=== PATIENT | female | born 1980 | race Caucasian/White ===

== ENCOUNTER 2017-09-11 09:50 | Inpatient (IN) | payer OTHER ==
[2017-09-11 10:34] VITALS: BMI 30.1
--- NOTE | 2017-09-11 12:11 | HP ---
CIWA Score - CIWA Score Nausea/Vomitin Muscle Tremors: 3 Anxiety: 2 Agitation: 2 Paroxysmal Sweats: 2 Orientation: 0-Oriented Tacttile Disturbances: 2-Mild Itch/Numbness/Burn Auditory Disturbances: 2-Mild Harshness/Frighten Visual Disturbances: 1-Very Mild Sensitivity Headache: 2-Mild CIWA-Ar Total Score: 19 Admission ROS BHS - HPI Chief Complaint: I need help to stop drinking alcohol Allergies/Adverse Reactions: Allergies Allergy/AdvReac Type Severity Reaction Status Date / Time No Known Allergies Allergy Verified 09/11/17 12:16 History of Present Illness: this 36 years old female with alcohol dependence,seeking detox,withdrawal symptom,never been in detox before, seen in [facility] 1 week ago syncope alcohol related obesity s/p lap gastric by pass on10/29/12 nicotine dependence anxiety,insomnia need help to stop drinking Exam Limitations: No Limitations - Ebola screening Have you traveled outside of the country in the last 21 days: No Have you had contact with anyone from an Ebola affected area: No Have you been sick,other than usual withdrawal symptoms: No Do you have a fever: No - Review of Systems Constitutional: Loss of Appetite, Malaise, Night Sweats, Changes in sleep, Weakness EENT: reports: Nose Congestion Respiratory: reports: No Symptoms reported Cardiac: reports: Palpitations GI: reports: Diarrhea, Nausea, Vomiting, Abdominal cramping : reports: No Symptoms Reported Musculoskeletal: reports: Back Pain, Muscle Pain Integumentary: reports: Dryness Neuro: reports: Headache, Tremors Endocrine: reports: No Symptoms Reported Hematology: reports: No Symptoms Reported Psychiatric: reports: No Sypmtoms Reported, Judgement Intact, Mood/Affect Appropiate, Orientated x3 (insomnia), Anxious Patient History - Patient Medical History Hx Anemia: No Hx Asthma: No Hx Chronic Obstructive Pulmonary Disease (COPD): No Hx Cancer: No Hx Cardiac Disorders: No Hx Congestive Heart Failure: No Hx Hypertension: No Hx Hypercholesterolemia: No Hx Pacemaker: No HX Cerebrovascular Accident: No Hx Seizures: No Hx Dementia: No Hx Diabetes: No Hx Gastrointestinal Disorders: No Hx Liver Disease: No Hx Genitourinary Disorders: No Hx Sexually Transmitted Disorders: No Hx Renal Disease (ESRD): No Hx Thyroid Disease: No Hx Human Immunodeficiency Virus (HIV): No (last 09/04/17 negative) Hx Hepatitis C: No Hx Depression: No Hx Suicide Attempt: No Hx Bipolar Disorder: No Hx Schizophrenia: No Other Medical History: no suicidal,no homicidal,s/p lap gastric by pass surgey on 10/29/12 - Patient Surgical History Past Surgical History: Yes Hx Abdominal Surgery: Yes (s/p lap gasric by pass in 10/29/12) - PPD History Previous Implant?: Yes Documented Results: Negative w/o proof Implanted On Prior [facility] Admission?: No PPD to be Administered?: Yes - Reproductive History Patient is a Female of Child Bearing Age (11 -55 yrs old): Yes Last Menstrual Period: 08/09/17 Patient : No - Smoking Cessation Smoking history: Current every day smoker Aproximately how many cigarettes per day: 4 Hx Chewing Tobacco Use: No Initiated information on smoking cessation: Yes 'Breaking Loose' booklet given: 09/11/17 - Substance & Tx. History Hx Alcohol Use: Yes Hx Substance Use: No Substance Use Type: Alcohol Hx Substance Use Treatment: No - Substances Abused Alcohol Route: Oral Frequency: Daily Amount used: 3 BOTTLES WINE Age of first use: 34 Date of Last Use: 09/11/17 Family Disease History - Family Disease History Family Disease History: Other: Father (alcohol,) Admission Physical Exam BHS - Vital Signs Vital Signs: Vital Signs - 24 hr 09/11/17 10:32 Temperature 97.1 F L Pulse Rate 101 H Respiratory 20 Rate Blood Pressure 142/97 - Physical General Appearance: Yes: Moderate Distress, Tremorous, Irritable, Sweating, Anxious HEENTM: Yes: Normal ENT Inspection, GERALDO, Pharynx Normal Respiratory: Yes: Lungs Clear, Normal Breath Sounds, No Respiratory Distress Neck: Yes: Within Normal Limits, Supple, Trachea in good position Breast: Yes: Breast Exam Deferred Cardiology: Yes: Tachycardia Abdominal: Yes: Within Normal Limits, Normal Bowel Sounds, Non Tender, Flat, Soft Genitourinary: Yes: Within Normal Limits Back: Yes: Muscle Spasm Musculoskeletal: Yes: full range of Motion, Back pain, Muscle Pain Extremities: Yes: Within Normal Limits, Normal Range of Motion, Tremors Neurological: Yes: set up mechanic heading machines II-XII NML intact, Fully Oriented, Alert, Motor Strength 5/5 Integumentary: Yes: Dry Lymphatic: Yes: Within Normal Limits - Diagnostic (1) Alcohol dependence with uncomplicated withdrawal Current Visit: Yes Status: Acute (2) Alcohol dependence with uncomplicated intoxication Current Visit: Yes Status: Acute (3) Nicotine dependence Current Visit: Yes Status: Acute (4) Insomnia secondary to depression with anxiety Current Visit: Yes Status: Acute (5) Status post bariatric surgery Current Visit: Yes Status: Acute Cleared for Admission BHS - Detox or Rehab [facility] Level of Care: Medically Managed Detox Regimen/Protocol: Librium S Breath Alcohol Content Breath Alcohol Content: 0.216 Urine Pregancy Test - Result Urine Test Results: Negative- NO Line Present Urine Drug Screen - Results Drug Screen Negative: No Urine Drug Screen Results: BZO-Benzodiazepines
[2017-09-11] MEDS ORDERED: MAG HYDROX/AL HYDROX/SIMETH 30 ML UNIT-DOSE CUP PO PRN (12:43)
[2017-09-11] MEDS ORDERED: ACETAMINOPHEN 325 MG TABLET (FP) PO PRN (12:43)
[2017-09-11] MEDS ORDERED: IBUPROFEN 400 MG TABLET (FP) PO PRN (12:43)
[2017-09-11] MEDS ORDERED: guaiFENesin/D-METHORPHAN HB 10 ML UNIT-DOSE CUPS PO PRN (12:43)
[2017-09-11] MEDS ORDERED: P-EPHED 60MG/TRIPROLIDI 2.5MG TABLET PO PRN (12:43)
[2017-09-11] MEDS ORDERED: MENTHOL/PHENOL 1 EACH UD MM PRN (12:43)
[2017-09-11] MEDS ORDERED: LOPERAMIDE HCL 2 MG CAPSULE PO PRN (12:43)
[2017-09-11] MEDS ORDERED: MAGNESIUM CITRATE 300 ML BOTTLE PO PRN (12:43)
[2017-09-11] MEDS ORDERED: MAGNESIUM HYDROX 2400MG/30ML ORAL SUSPENSION 30 ML CUP PO PRN (12:43)
[2017-09-11] MEDS ORDERED: chlordiazePOXIDE HCL 25 MG CAPSULE PO ONE (13:15)
--- NOTE | 2017-09-11 13:43 | CONSULT ---
[facility] Psychiatric Consult - Data Date of interview: 09/11/17 Admission source: [facility] Identifying data: This is 36 years old female, single mothe rof three, apartment groundskeeper working, living with family, on PA, with no psychiatric hospitalization history, with alcohol dependence,seeking detoxification, reports alcohol withdrawal symptoms. Substance Abuse History: Smoking history: Current every day smoker. Aproximately how many cigarettes per day: 4. Hx Chewing Tobacco Use: No. Initiated information on smoking cessation: Yes. 'Breaking Loose' booklet given : 09/11/17. - Substance & Tx. History. Hx Alcohol Use: Yes. Hx Substance Use : No. Substance Use Type: Alcohol. Hx Substance Use Treatment: No. - Substances Abused. Alcohol. Route: Oral. Frequency: Daily. Amount used: 3 BOTTLES WINE. Age of first use: 34. Date of Last Use: 09/11/17 Medical History: Syncope history, Obesity, s/p gastric bypass/Bariatric surgery, Psychiatric History: Denies past psychiatric history\Denies suicidal, homicidal history as well Physical/Sexual Abuse/Trauma History: Denies Additional Comment: Observation. Detox Unit Care Protocol Mental Status Exam - Mental Status Exam Alert and Oriented to: Person Cognitive Function: Fair Patient Appearance: Well Groomed Mood: Apprehensive Affect: Mood Congruent Patient Behavior: Cooperative Speech Pattern: Appropriate Voice Loudness: Normal Thought Process: Goal Oriented Thought Disorder: Being Controlled Hallucinations: Denies Suicidal Ideation: Denies Homicidal Ideation: Denies Insight/Judgement: Fair Sleep: Difficulty falling asleep Appetite: Weight gain Muscle strength/Tone: Normal Gait/Station: Normal Additional Comments: Observation. Detox Unit Care Protocol Psychiatric Findings - Problem List ([place] 1, 2,3) (1) Drug-induced mood disorder Current Visit: Yes Status: Suspected (2) Alcohol dependence with uncomplicated intoxication Current Visit: Yes Status: Acute (3) Alcohol dependence with uncomplicated withdrawal Current Visit: Yes Status: Acute (4) Nicotine dependence Current Visit: Yes Status: Acute - Initial Treatment Plan Initial Treatment Plan: Observation. Detox Unit Care Protocol
[2017-09-11] MEDS: NICOTINE 14 MG/24 HOURS TOPICAL PATCH TD SCH (13:52)
--- NOTE | 2017-09-11 14:51 | EKG ---
Test Reason : Blood Pressure : / mmHG Vent. Rate : 090 BPM Atrial Rate : 090 BPM P-R Int : 158 ms QRS Dur : 080 ms QT Int : 374 ms P-R-T Axes : 045 048 029 degrees QTc Int : 457 ms NORMAL SINUS RHYTHM NORMAL ECG NO PREVIOUS ECGS AVAILABLE Confirmed by GELY FERRARI MD ([id number]) on 09/11/2017 2:50:39 PM Referred By: Confirmed By:GELY FERRARI MD
[2017-09-11] MEDS: chlordiazePOXIDE HCL 25 MG CAPSULE PO SCH ×2 (16:58→22:33)
[2017-09-11 18:07] LABS: URINE APPEARANCE SLCLOUDY; URINE BILIRUBIN NEGATIVE (<2.0 mg/dL); URINE BLOOD 2+ (NEGATIVE); URINE COLOR YELLOW; URINE GLUCOSE (UA) NEGATIVE (NEGATIVE); URINE KETONE NEGATIVE (NEGATIVE); URINE LEUK ESTERASE TRACE (NEGATIVE); URINE NITRITE POSITIVE (NEGATIVE); URINE PROTEIN NEGATIVE (NEGATIVE); URINE UROBILINOGEN NEGATIVE mg/dL (0.2-1.0)
[2017-09-11 18:16] LABS: EPI CELLS RARE /HPF (FEW); URINE BACTERIA RARE /hpf (NONE SEEN)
[2017-09-11] MEDS: chlordiazePOXIDE HCL 25 MG CAPSULE PO PRN (19:01)
[2017-09-11] MEDS ORDERED: MELATONIN 5 MG TABLETS PO PRN (22:00)
[2017-09-11] MEDS: THIAMINE HCL 100 MG TABLET (FP) PO SCH (22:32)
[2017-09-11] MEDS: hydrOXYzine PAMOATE 50 MG CAPSULE (FP) PO PRN (22:34)
[2017-09-12] MEDS: chlordiazePOXIDE HCL 25 MG CAPSULE PO SCH ×4 (05:38→22:23)
--- NOTE | 2017-09-12 10:04 | PN ---
S CIWA - CIWA Score Nausea/Vomitin Muscle Tremors: 3 Anxiety: 3 Agitation: 1-Slight > Activity Paroxysmal Sweats: 1-Minimal Palms Moist Orientation: 0-Oriented Tacttile Disturbances: 1-Very Mild Itch/Numbness Auditory Disturbances: 0-None Visual Disturbances: 0-None Headache: 0-None Present CIWA-Ar Total Score: 12 BHS Progress Note (SOAP) Subjective: nause,k asweats, interruped sleep, anxiety, trmeors, back pain requesting flxeril Objective: 09/12/17 10:03 Vital Signs - 24 hr 09/11/17 09/11/17 09/11/17 10:32 14:28 16:00 Temperature 97.1 F L 98.7 F Pulse Rate 101 H 94 H 98 H Respiratory 20 18 Rate Blood Pressure 142/97 142/88 09/11/17 09/11/17 09/11/17 17:00 17:30 18:00 Temperature 98.2 F Pulse Rate 115 H 120 H 118 H Respiratory 18 18 18 Rate Blood Pressure 150/86 09/11/17 09/11/17 09/11/17 19:00 19:30 20:00 Temperature Pulse Rate 109 H 111 H 100 H Respiratory 18 18 18 Rate Blood Pressure 09/11/17 09/11/17 09/11/17 20:30 21:00 21:30 Temperature Pulse Rate 100 H 102 H 100 H Respiratory 16 16 16 Rate Blood Pressure 09/11/17 09/11/17 09/11/17 22:00 22:30 23:00 Temperature 98.1 F Pulse Rate 112 H 110 H 112 H Respiratory 16 16 16 Rate Blood Pressure 136/94 09/12/17 09/12/17 09/12/17 00:30 01:00 01:30 Temperature Pulse Rate 100 H 98 H 102 H Respiratory 18 18 18 Rate Blood Pressure 09/12/17 09/12/17 09/12/17 02:00 02:30 03:30 Temperature Pulse Rate 104 H 100 H Respiratory 18 18 18 Rate Blood Pressure 09/12/17 09/12/17 09/12/17 04:00 04:30 05:00 Temperature Pulse Rate 92 H 94 H 69 Respiratory 16 16 16 Rate Blood Pressure 09/12/17 09/12/17 09/12/17 05:30 06:00 06:30 Temperature Pulse Rate 98 H 68 70 Respiratory 16 16 16 Rate Blood Pressure 09/12/17 09/12/17 09/12/17 07:00 07:28 07:30 Temperature 98 F Pulse Rate 70 69 72 Respiratory 16 16 16 Rate Blood Pressure 108/58 Laboratory Tests 09/11/17 15:00 Urine Color Yellow Urine Appearance Slcloudy Urine pH 6.0 Ur Specific [place] 1.005 Urine Protein Negative Urine Glucose (UA) Negative Urine Ketones Negative Urine Blood 2+ H Urine Nitrite Positive Urine Bilirubin Negative Urine Urobilinogen Negative Ur Leukocyte Esterase Trace Urine WBC (Auto) 4 Urine RBC (Auto) 3 Ur Epithelial Cells Rare Urine Bacteria Rare labs pending Assessment: 09/12/17 10:03 withdrawal sx - cont detox, bakc pain flexeril ordered as per patitn request
[2017-09-12] MEDS: PRENATAL VITAMINS W/ FOLIC ACID TABLET (FP) PO SCH (10:35)
[2017-09-12] MEDS: NICOTINE 14 MG/24 HOURS TOPICAL PATCH TD SCH (10:35)
[2017-09-12 10:48] LABS: HEMATOCRIT 40.1 % (32.4-45.2); HEMOGLOBIN 13.5 GM/dL (10.7-15.3); MCH 32.3 pg (25.7-33.7); MCHC 33.7 g/dl (32.0-36.0); MEAN PLT VOLUME 8.5 fl (7.5-11.1); PLATELET COUNT 214 K/MM3 (134-434); RBC 4.18 M/mm3 (3.60-5.2); RDW 14.1 % (11.6-15.6)
[2017-09-12 10:53] LABS: ALBUMIN 3.9 g/dl (3.4-5.0); ANION GAP 6 (8-16); BLOOD UREA NITROGEN 6 mg/dL (7-18); CALCIUM 8.5 mg/dL (8.5-10.1); CHLORIDE 102 mmol/L (98-107); CO2 32 mmol/L (21-32); GLUCOSE,RANDOM 100 mg/dL (74-106); POTASSIUM 3.3 mmol/L (3.5-5.1); SODIUM 140 mmol/L (136-145)
[2017-09-12 10:59] LABS: ALK PHOS 75 U/L (45-117); BILIRUBIN,TOTAL < 0.1 mg/dL (0.2-1.0); CREATININE 0.5 mg/dL (0.55-1.02); SGOT/AST 75 U/L (15-37); SGPT/ALT 80 U/L (12-78); TOT PROT 7.6 g/dl (6.4-8.2)
[2017-09-12 11:11] LABS: SICKLE CELL SCREEN NEGATIVE (NEGATIVE)
[2017-09-12] MEDS: chlordiazePOXIDE HCL 25 MG CAPSULE PO PRN (14:10)
[2017-09-12] MEDS: CYCLOBENZAPRINE HCL 10 MG TABLET (FP) PO SCH ×2 (14:13→22:23)
[2017-09-12] MEDS: ZOLPIDEM TARTRATE 10 MG TABLET (PARK CARE ONLY) PO PRN (22:23)
[2017-09-12] MEDS: THIAMINE HCL 100 MG TABLET (FP) PO SCH (22:23)
[2017-09-13] MEDS: CYCLOBENZAPRINE HCL 10 MG TABLET (FP) PO SCH ×3 (05:37→22:43)
[2017-09-13] MEDS: chlordiazePOXIDE HCL 25 MG CAPSULE PO SCH ×2 (05:37→10:59)
[2017-09-13] MEDS ORDERED: POTASSIUM CHLORIDE TABS 20 MEQ TABLET.ER (FP) PO ONE (07:04)
--- NOTE | 2017-09-13 07:06 | PN ---
S Progress Note Note: kdur 40 meq po x 1 for K+ 3.3 repeat bmp 09/14/2017
[2017-09-13] MEDS: NICOTINE 14 MG/24 HOURS TOPICAL PATCH TD SCH (10:59)
[2017-09-13] MEDS: PRENATAL VITAMINS W/ FOLIC ACID TABLET (FP) PO SCH (10:59)
[2017-09-13] MEDS: chlordiazePOXIDE 5 MG CAPSULE PO SCH ×2 (17:31→22:43)
--- NOTE | 2017-09-13 20:44 | PN ---
S CIWA - CIWA Score Nausea/Vomitin Muscle Tremors: 3 Anxiety: 3 Agitation: 2 Paroxysmal Sweats: 2 Orientation: 0-Oriented Tacttile Disturbances: 0-None Auditory Disturbances: 0-None Visual Disturbances: 0-None Headache: 0-None Present CIWA-Ar Total Score: 13 BHS Progress Note (SOAP) Subjective: sweats shakes sleep disturbance Objective: A & o x 3 ambulates steadily Last Vital Signs Temp Pulse Resp BP Pulse Ox 97.2 F L 86 18 115/61 09/13/17 17:55 09/13/17 17:55 09/13/17 17:55 09/13/17 17:55 Assessment: 09/13/17 20:44 withdrawal sx Plan: continue detox
[2017-09-13] MEDS: THIAMINE HCL 100 MG TABLET (FP) PO SCH (22:43)
[2017-09-13] MEDS: ZOLPIDEM TARTRATE 10 MG TABLET (PARK CARE ONLY) PO PRN (22:43)
[2017-09-14] MEDS: chlordiazePOXIDE 5 MG CAPSULE PO SCH ×2 (05:44→10:31)
[2017-09-14] MEDS: CYCLOBENZAPRINE HCL 10 MG TABLET (FP) PO SCH ×3 (05:44→22:26)
[2017-09-14 10:11] LABS: ANION GAP 6 (8-16); BLOOD UREA NITROGEN 8 mg/dL (7-18); CALCIUM 8.3 mg/dL (8.5-10.1); CHLORIDE 105 mmol/L (98-107); CO2 28 mmol/L (21-32); CREATININE 0.5 mg/dL (0.55-1.02); GLUCOSE,RANDOM 87 mg/dL (74-106); POTASSIUM 4.1 mmol/L (3.5-5.1); SODIUM 139 mmol/L (136-145)
[2017-09-14] MEDS: NICOTINE 14 MG/24 HOURS TOPICAL PATCH TD SCH (10:31)
[2017-09-14] MEDS: PRENATAL VITAMINS W/ FOLIC ACID TABLET (FP) PO SCH (10:31)
[2017-09-14] MEDS: hydrOXYzine PAMOATE 50 MG CAPSULE (FP) PO PRN (13:21)
--- NOTE | 2017-09-14 14:49 | PN ---
BHS Progress Note (SOAP) Subjective: feeling better less sweat no tremor tolerated food and fluid well Objective: 09/14/17 14:48 Vital Signs Temperature 100.0 F H 09/14/17 14:10 Pulse Rate 95 H 09/14/17 14:10 Respiratory Rate 20 09/14/17 14:10 Blood Pressure 113/72 09/14/17 14:10 O2 Sat by Pulse Oximetry (%) Laboratory Last Values WBC 5.0 K/mm3 (4.0-10.0) 09/12/17 05:50 RBC 4.18 M/mm3 (3.60-5.2) 09/12/17 05:50 Hgb 13.5 GM/dL (10.7-15.3) 09/12/17 05:50 Hct 40.1 % (32.4-45.2) 09/12/17 05:50 MCV 96.0 fl (80-96) 09/12/17 05:50 MCH 32.3 pg (25.7-33.7) 09/12/17 05:50 MCHC 33.7 g/dl (32.0-36.0) 09/12/17 05:50 RDW 14.1 % (11.6-15.6) 09/12/17 05:50 Plt Count 214 K/MM3 (134-434) 09/12/17 05:50 MPV 8.5 fl (7.5-11.1) 09/12/17 05:50 Sickle Cell Screen Negative (NEGATIVE) 09/12/17 05:50 Sodium 139 mmol/L (136-145) 09/14/17 06:00 Potassium 4.1 mmol/L (3.5-5.1) 09/14/17 06:00 Chloride 105 mmol/L (98-107) 09/14/17 06:00 Carbon Dioxide 28 mmol/L (21-32) 09/14/17 06:00 Anion Gap 6 (8-16) L 09/14/17 06:00 BUN 8 mg/dL (7-18) 09/14/17 06:00 Creatinine 0.5 mg/dL (0.55-1.02) L 09/14/17 06:00 Creat Clearance w eGFR > 60 (>60) 09/12/17 05:50 Random Glucose 87 mg/dL (74-106) 09/14/17 06:00 Calcium 8.3 mg/dL (8.5-10.1) L 09/14/17 06:00 Total Bilirubin < 0.1 mg/dL (0.2-1.0) L 09/12/17 05:50 AST 75 U/L (15-37) H 09/12/17 05:50 ALT 80 U/L (12-78) H 09/12/17 05:50 Alkaline Phosphatase 75 U/L (45-117) 09/12/17 05:50 Total Protein 7.6 g/dl (6.4-8.2) 09/12/17 05:50 Albumin 3.9 g/dl (3.4-5.0) 09/12/17 05:50 Urine Color Yellow 09/11/17 15:00 Urine Appearance Slcloudy 09/11/17 15:00 Urine pH 6.0 (5.0-8.0) 09/11/17 15:00 Ur Specific [place] 1.005 (1.001-1.035) 09/11/17 15:00 Urine Protein Negative (NEGATIVE) 09/11/17 15:00 Urine Glucose (UA) Negative (NEGATIVE) 09/11/17 15:00 Urine Ketones Negative (NEGATIVE) 09/11/17 15:00 Urine Blood 2+ (NEGATIVE) H 09/11/17 15:00 Urine Nitrite Positive (NEGATIVE) 09/11/17 15:00 Urine Bilirubin Negative (<2.0 mg/dL) 09/11/17 15:00 Urine Urobilinogen Negative mg/dL (0.2-1.0) 09/11/17 15:00 Ur Leukocyte Esterase Trace (NEGATIVE) 09/11/17 15:00 Urine WBC (Auto) 4 /hpf (3-5) 09/11/17 15:00 Urine RBC (Auto) 3 /hpf (0-3) 09/11/17 15:00 Ur Epithelial Cells Rare /HPF (FEW) 09/11/17 15:00 Urine Bacteria Rare /hpf (NONE SEEN) 09/11/17 15:00 RPR Titer Nonreactive (NONREACTIVE) 09/12/17 05:50 lab noted Assessment: 09/14/17 14:49 mild withdrawal sx Plan: medically supervised detox
[2017-09-14] MEDS: chlordiazePOXIDE HCL 10 MG CAPSULE PO SCH ×2 (17:04→22:27)
[2017-09-14] MEDS: THIAMINE HCL 100 MG TABLET (FP) PO SCH (22:26)
[2017-09-14] MEDS: ZOLPIDEM TARTRATE 10 MG TABLET (PARK CARE ONLY) PO PRN (22:26)
[2017-09-15] MEDS: chlordiazePOXIDE HCL 10 MG CAPSULE PO SCH (06:00)
[2017-09-15] MEDS: CYCLOBENZAPRINE HCL 10 MG TABLET (FP) PO SCH (06:13)
[2017-09-15 08:05] VITALS: BP 90/60; PULSE 69; TEMP 97.3
[2017-09-15] MEDS: NICOTINE 14 MG/24 HOURS TOPICAL PATCH TD SCH (09:04)
[2017-09-15] MEDS: PRENATAL VITAMINS W/ FOLIC ACID TABLET (FP) PO SCH (09:04)
--- NOTE | 2017-09-15 09:30 | DS ---
[facility] Detox Discharge Summary Admission Date: 09/11/17 Discharge Date: 09/15/17 - History Present History: Alcohol Dependence Additional Comments: 36 years old female admitted on 09/11/17 for alcohol withdrawal sx completed alcohol detox regimen tolerated well denies alcohol withdrawal sx alert oriented x 3 no acute distress follow up with medical primary care provider as well as addiction menagement - Physical Exam Results Vital Signs: Vital Signs Temperature 97.3 F L 09/15/17 05:00 Pulse Rate 69 09/15/17 05:00 Respiratory Rate 18 09/15/17 05:00 Blood Pressure 90/60 09/15/17 05:00 O2 Sat by Pulse Oximetry (%) Pertinent Admission Physical Exam Findings: withdrawal sx Vital Signs Temperature 97.3 F L 09/15/17 05:00 Pulse Rate 69 09/15/17 05:00 Respiratory Rate 18 09/15/17 05:00 Blood Pressure 90/60 09/15/17 05:00 O2 Sat by Pulse Oximetry (%) Laboratory Last Values WBC 5.0 K/mm3 (4.0-10.0) 09/12/17 05:50 RBC 4.18 M/mm3 (3.60-5.2) 09/12/17 05:50 Hgb 13.5 GM/dL (10.7-15.3) 09/12/17 05:50 Hct 40.1 % (32.4-45.2) 09/12/17 05:50 MCV 96.0 fl (80-96) 09/12/17 05:50 MCH 32.3 pg (25.7-33.7) 09/12/17 05:50 MCHC 33.7 g/dl (32.0-36.0) 09/12/17 05:50 RDW 14.1 % (11.6-15.6) 09/12/17 05:50 Plt Count 214 K/MM3 (134-434) 09/12/17 05:50 MPV 8.5 fl (7.5-11.1) 09/12/17 05:50 Sickle Cell Screen Negative (NEGATIVE) 09/12/17 05:50 Sodium 139 mmol/L (136-145) 09/14/17 06:00 Potassium 4.1 mmol/L (3.5-5.1) 09/14/17 06:00 Chloride 105 mmol/L (98-107) 09/14/17 06:00 Carbon Dioxide 28 mmol/L (21-32) 09/14/17 06:00 Anion Gap 6 (8-16) L 09/14/17 06:00 BUN 8 mg/dL (7-18) 09/14/17 06:00 Creatinine 0.5 mg/dL (0.55-1.02) L 09/14/17 06:00 Creat Clearance w eGFR > 60 (>60) 09/12/17 05:50 Random Glucose 87 mg/dL (74-106) 09/14/17 06:00 Calcium 8.3 mg/dL (8.5-10.1) L 09/14/17 06:00 Total Bilirubin < 0.1 mg/dL (0.2-1.0) L 09/12/17 05:50 AST 75 U/L (15-37) H 09/12/17 05:50 ALT 80 U/L (12-78) H 09/12/17 05:50 Alkaline Phosphatase 75 U/L (45-117) 09/12/17 05:50 Total Protein 7.6 g/dl (6.4-8.2) 09/12/17 05:50 Albumin 3.9 g/dl (3.4-5.0) 09/12/17 05:50 Urine Color Yellow 09/11/17 15:00 Urine Appearance Slcloudy 09/11/17 15:00 Urine pH 6.0 (5.0-8.0) 09/11/17 15:00 Ur Specific [place] 1.005 (1.001-1.035) 09/11/17 15:00 Urine Protein Negative (NEGATIVE) 09/11/17 15:00 Urine Glucose (UA) Negative (NEGATIVE) 09/11/17 15:00 Urine Ketones Negative (NEGATIVE) 09/11/17 15:00 Urine Blood 2+ (NEGATIVE) H 09/11/17 15:00 Urine Nitrite Positive (NEGATIVE) 09/11/17 15:00 Urine Bilirubin Negative (<2.0 mg/dL) 09/11/17 15:00 Urine Urobilinogen Negative mg/dL (0.2-1.0) 09/11/17 15:00 Ur Leukocyte Esterase Trace (NEGATIVE) 09/11/17 15:00 Urine WBC (Auto) 4 /hpf (3-5) 09/11/17 15:00 Urine RBC (Auto) 3 /hpf (0-3) 09/11/17 15:00 Ur Epithelial Cells Rare /HPF (FEW) 09/11/17 15:00 Urine Bacteria Rare /hpf (NONE SEEN) 09/11/17 15:00 RPR Titer Nonreactive (NONREACTIVE) 09/12/17 05:50 lab noted - Treatment Hospital Course: Detox Protocol Followed, Detoxed Safely, Responded well, Discharged Condition Good, Rehab Referral Accepted Patient has Accepted a Rehab Referral to: Dr Briscoe - Medication Discharge Medications: Ambulatory Orders NK [No Known Home Medication] 09/11/17 - Diagnosis (1) Alcohol dependence with uncomplicated intoxication Status: Acute (2) Nicotine dependence Status: Acute Qualifiers: Nicotine product type: cigarettes Substance use status: in withdrawal Qualified Code(s): F17.213 - Nicotine dependence, cigarettes, with withdrawal (3) Status post bariatric surgery Status: Suspected - AMA Did Patient Leave Against Medical Advice: No
== END 2017-09-15 09:05 | disposition home or self-care (01) | DRG 775 ==
LOC: YASAS 09:50 → EDSEX 09:50 → Y6N 12:42
PROVIDERS: ADMIT Internal Medicine; ATTEND Internal Medicine
PROC: HZ2ZZZZ Detoxification Services for Substance Abuse Treatment (ICD-10-PCS; principal; 2017-09-11)
DX: F10.230 Alcohol dependence with withdrawal, uncomplicated (principal); F17.213 Nicotine dependence, cigarettes, with withdrawal; F19.24 Other psychoactive substance dependence with psychoactive substance-induced mood disorder; F51.05 Insomnia due to other mental disorder; M54.5 Low back pain; Z98.84 Bariatric surgery status
CPT/HCPCS: 36415; 80048; 80053; 81003; 81015; 85027; 85660; 86593; 93005; 93010

== ENCOUNTER 2017-10-13 01:12 | Inpatient (IN) | payer OTHER ==
--- NOTE | 2017-10-13 01:40 | HP ---
CIWA Score - CIWA Score Nausea/Vomitin-No Nausea/No Vomiting Muscle Tremors: 3 Anxiety: 3 Agitation: 1-Slight > Activity Paroxysmal Sweats: 3 Orientation: 1-Uncertain about Date Tacttile Disturbances: 0-None Auditory Disturbances: 0-None Visual Disturbances: 0-None Headache: 4-Moderately Severe CIWA-Ar Total Score: 15 Admission ROS S - HPI Chief Complaint: Alcohol withdrawal symptoms Allergies/Adverse Reactions: Allergies Allergy/AdvReac Type Severity Reaction Status Date / Time No Known Allergies Allergy Verified 09/11/17 12:16 History of Present Illness: 36 years old female with 3 years old history of alcohol dependence is seeking admission to detox. Patient has been in previous detox at [facility] and reports insignificant period of sobriety. She has medical history of depression, Hypertension and anxiety. Patient denies suicide attempt and suicidal ideation at this time. Exam Limitations: No Limitations - Ebola screening Have you traveled outside of the country in the last 21 days: No Have you had contact with anyone from an Ebola affected area: No Have you been sick,other than usual withdrawal symptoms: No Do you have a fever: No - Review of Systems Constitutional: Chills, Loss of Appetite, Malaise, Night Sweats, Changes in sleep EENT: reports: No Symptoms Reported Respiratory: reports: No Symptoms reported Cardiac: reports: No Symptoms Reported, Chest Tightness GI: reports: No Symptoms Reported, Poor Appetite, Poor Fluid Intake, Vomiting : reports: No Symptoms Reported Musculoskeletal: reports: Back Pain, Muscle Pain Integumentary: reports: Dryness Neuro: reports: No Symptoms reported Endocrine: reports: No Symptoms Reported Hematology: reports: No Symptoms Reported Psychiatric: reports: Anxious, Depressed Other Systems: Reviewed and Negative Patient History - Patient Medical History Hx Anemia: No Hx Asthma: No Hx Chronic Obstructive Pulmonary Disease (COPD): No Hx Cancer: No Hx Cardiac Disorders: No Hx Congestive Heart Failure: No Hx Hypertension: Yes (Not on medication) Hx Hypercholesterolemia: No Hx Pacemaker: No HX Cerebrovascular Accident: No Hx Seizures: No Hx Dementia: No Hx Diabetes: No Hx Gastrointestinal Disorders: No Hx Liver Disease: No Hx Genitourinary Disorders: No Hx Sexually Transmitted Disorders: No Hx Renal Disease (ESRD): No Hx Thyroid Disease: No Hx Human Immunodeficiency Virus (HIV): No (Negative 09/04/17 ) Hx Hepatitis C: No Hx Depression: Yes (Not on medication) Hx Suicide Attempt: No Hx Bipolar Disorder: No Hx Schizophrenia: No Other Medical History: Anxiety - Patient Surgical History Past Surgical History: Yes Hx Neurologic Surgery: No Hx Cataract Extraction: No Hx Cardiac Surgery: No Hx Lung Surgery: No Hx Abdominal Surgery: Yes (s/p lap gasric by pass in 10/29/12) Hx Appendectomy: No Hx Cholecystectomy: No Hx Genitourinary Surgery: No Hx Section: No Hx Orthopedic Surgery: No Hx Hysterectomy: No Anesthesia Reaction: No - PPD History Date: 09/13/17 PPD to be Administered?: No - Reproductive History Patient is a Female of Child Bearing Age (11 -55 yrs old): Yes Last Menstrual Period: 08/09/17 LMP comment: Tubligation December 04, 2007 Patient : No - Smoking Cessation Smoking history: Current every day smoker Have you smoked in the past 12 months: Yes Aproximately how many cigarettes per day: 10 Hx Chewing Tobacco Use: No Initiated information on smoking cessation: Yes 'Breaking Loose' booklet given: 10/13/17 - Substance & Tx. History Hx Alcohol Use: Yes Hx Substance Use: No Hx Substance Use Treatment: Yes ([facility]) - Substances Abused Alcohol Route: Oral Frequency: Daily Amount used: VODKA - 1 Liter Age of first use: 34 Date of Last Use: 10/12/17 Family Disease History - Family Disease History Family Disease History: Heart Disease: Father (alcohol, depressiondeceased), Other: Father, Mother (Hyperthyroidism), Brother (Bipolar, Schizophrenia) Admission Physical Exam [facility] - Physical General Appearance: Yes: Moderate Distress, Tremorous, Irritable, Sweating, Anxious HEENTM: Yes: EOMI, Normal ENT Inspection, Normocephalic, Normal Voice Respiratory: Yes: Lungs Clear, Normal Breath Sounds, No Respiratory Distress Neck: Yes: Supple Breast: Yes: Breast Exam Deferred Cardiology: Yes: Tachycardia Abdominal: Yes: Normal Bowel Sounds, Flat Genitourinary: Yes: Within Normal Limits Back: Yes: Normal Inspection Musculoskeletal: Yes: Back pain, Muscle Pain, Muscle weakness Extremities: Yes: Tremors Neurological: Yes: Normal Mood/Affect Integumentary: Yes: Normal Color Lymphatic: Yes: Within Normal Limits - Diagnostic (1) Alcohol dependence with uncomplicated withdrawal Current Visit: Yes Status: Chronic (2) HTN (hypertension) Current Visit: Yes Status: Chronic (3) Depression Current Visit: Yes Status: Chronic (4) Anxiety Current Visit: Yes Status: Chronic (5) Nicotine dependence Current Visit: No Status: Chronic Qualifiers: Nicotine product type: cigarettes Substance use status: in withdrawal Qualified Code(s): F17.213 - Nicotine dependence, cigarettes, with withdrawal Cleared for Admission S - Detox or Rehab [facility] Level of Care: Medically Managed Detox Regimen/Protocol: Librium BHS Breath Alcohol Content Breath Alcohol Content: 0.002 Vital Signs - Vital Signs Vital Signs Refused: No Temperature: 98.4 F Temperature Source: Oral Pulse Rate: 104 Respiratory Rate: 20 Blood Pressure: 159/99 BP Location: Left Arm Blood Pressure Position: Sitting - Height Height: 5 ft 3 in - Weight Weight: 174 lb Weight Measurement Method: Standing Scale Body Mass Index (BMI): 30.8 - Bowel Function Bowel Movement: No Urine Pregancy Test - Test Device Lot Number: [id number] Expiration Date: 04/24/19 - Result Urine Test Results: Negative- NO Line Present Urine Drug Screen - Test Device Lot Number: [id number] Expiration Date: 06/25/19 - Control Is Test Valid: Yes - Results Drug Screen Negative: No Urine Drug Screen Results: BZO-Benzodiazepines
[2017-10-13 01:45] VITALS: BMI 30.8
[2017-10-13] MEDS ORDERED: guaiFENesin/D-METHORPHAN HB 10 ML UNIT-DOSE CUPS PO PRN (02:03)
[2017-10-13] MEDS ORDERED: MAGNESIUM CITRATE 300 ML BOTTLE PO PRN (02:03)
[2017-10-13] MEDS ORDERED: MAGNESIUM HYDROX 2400MG/30ML ORAL SUSPENSION 30 ML CUP PO PRN (02:03)
[2017-10-13] MEDS ORDERED: LOPERAMIDE HCL 2 MG CAPSULE PO PRN (02:03)
[2017-10-13] MEDS ORDERED: P-EPHED 60MG/TRIPROLIDI 2.5MG TABLET PO PRN (02:03)
[2017-10-13] MEDS ORDERED: MENTHOL/PHENOL 1 EACH UD MM PRN (02:03)
[2017-10-13] MEDS ORDERED: MAG HYDROX/AL HYDROX/SIMETH 30 ML UNIT-DOSE CUP PO PRN (02:03)
[2017-10-13] MEDS ORDERED: ACETAMINOPHEN 325 MG TABLET (FP) PO PRN (02:03)
[2017-10-13] MEDS ORDERED: IBUPROFEN 400 MG TABLET (FP) PO PRN (02:03)
[2017-10-13] MEDS ORDERED: cloNIDine HCL 0.1 MG TABLET PO ONE (03:03)
[2017-10-13] MEDS: chlordiazePOXIDE HCL 25 MG CAPSULE PO PRN ×2 (03:25→08:50)
[2017-10-13] MEDS: chlordiazePOXIDE HCL 25 MG CAPSULE PO SCH ×4 (05:53→22:36)
--- NOTE | 2017-10-13 09:00 | CONSULT ---
[facility] Psychiatric Consult - Data Date of interview: 10/13/17 Admission source: [facility] Identifying data: This is 36 years old female, single mother of three, living with youngest child, recently lost her job, currently on PA, with psychiatric hospitalization history, with 3 years old history of alcohol dependence is seeking admission to detox reporting withdrawal symptoms. Substance Abuse History: Smoking history: Current every day smoker. Have you smoked in the past 12 months: Yes. Aproximately how many cigarettes per day: 10. Hx Chewing Tobacco Use: No. Initiated information on smoking cessation: Yes. 'Breaking Loose' booklet given: 10/13/17. - Substance & Tx. History. Hx Alcohol Use: Yes. Hx Substance Use: No. Hx Substance Use Treatment: Yes ([facility]) . - Substances Abused. Alcohol. Route: Oral. Frequency: Daily. Amount used: VODKA - 1 Liter. Age of first use: 34. Date of Last Use: 10/12/17 Medical History: HTN, s/p Bariartric surgery Psychiatric History: Patient reports depression and anxiety, reports psychiatric admission but does npt remeber where and when, denies suicidal and homicidal history, reports no medications taking prior mto admission, asking medications for anxiety. Physical/Sexual Abuse/Trauma History: Denies Additional Comment: Observation. Detox Unit Care Protocol. Vistaril 50mg pop prn q4 for anxiety Mental Status Exam - Mental Status Exam Alert and Oriented to: Place, Person Cognitive Function: Fair Patient Appearance: Well Groomed Mood: Sad Affect: Flat Patient Behavior: Cooperative Speech Pattern: Delayed Voice Loudness: Mildly Soft/Quiet Thought Process: Circumstantial Thought Disorder: Being Controlled Hallucinations: Denies Suicidal Ideation: Denies Homicidal Ideation: Denies Insight/Judgement: Fair Sleep: Difficulty falling asleep Appetite: Weight gain Muscle strength/Tone: Mild Hypertonicity Gait/Station: Normal Additional Comments: Observation. Detox Unit Care Protocol. Vistaril 50mg pop prn q4 for anxiety Psychiatric Findings - Problem List ([place] 1, 2,3) (1) Alcohol dependence with uncomplicated withdrawal Current Visit: Yes Status: Chronic (2) Anxiety Current Visit: Yes Status: Chronic (3) Depression Current Visit: Yes Status: Chronic (4) Alcohol dependence with uncomplicated intoxication Current Visit: No Status: Acute (5) Nicotine dependence Current Visit: No Status: Chronic Qualifiers: Nicotine product type: cigarettes Substance use status: in withdrawal Qualified Code(s): F17.213 - Nicotine dependence, cigarettes, with withdrawal (6) Drug-induced mood disorder Current Visit: No Status: Suspected - Initial Treatment Plan Initial Treatment Plan: Observation. Detox Unit Care Protocol. Vistaril 50mg pop prn q4 for anxiety
[2017-10-13] MEDS: PRENATAL VITAMINS W/ FOLIC ACID TABLET (FP) PO SCH (10:58)
[2017-10-13 11:03] LABS: URINE APPEARANCE CLEAR; URINE BILIRUBIN NEGATIVE (<2.0 mg/dL); URINE GLUCOSE (UA) NEGATIVE (NEGATIVE); URINE KETONE NEGATIVE (NEGATIVE); URINE LEUK ESTERASE NEGATIVE (NEGATIVE); URINE NITRITE NEGATIVE (NEGATIVE)
[2017-10-13 11:07] LABS: URINE PROTEIN 1+ (NEGATIVE)
[2017-10-13 11:09] LABS: URINE COLOR YELLOW
[2017-10-13 11:19] LABS: EPI CELLS FEW /HPF (FEW); URINE MUCUS MODERATE
--- NOTE | 2017-10-13 12:01 | PN ---
S CIWA - CIWA Score Nausea/Vomitin-Mild Nausea/No Vomiting Muscle Tremors: 4-Moderate,w/Arms Extend Anxiety: 4-Mod. Anxious/Guarded Agitation: 4-Moderately Restless Paroxysmal Sweats: 1-Minimal Palms Moist Orientation: 0-Oriented Tacttile Disturbances: 0-None Auditory Disturbances: 0-None Visual Disturbances: 0-None Headache: 0-None Present CIWA-Ar Total Score: 14 BHS Progress Note (SOAP) Subjective: sweat tremor gi distress trouble sleep at night Objective: 10/13/17 12:02 Vital Signs Temperature 97.5 F L 10/13/17 09:47 Pulse Rate 76 10/13/17 09:47 Respiratory Rate 20 10/13/17 09:47 Blood Pressure 105/70 10/13/17 09:47 O2 Sat by Pulse Oximetry (%) Laboratory Last Values Urine Color Yellow 10/13/17 07:30 Urine Appearance Clear 10/13/17 07:30 Urine pH 5.0 (5.0-8.0) 10/13/17 07:30 Ur Specific [place] 1.017 (1.001-1.035) 10/13/17 07:30 Urine Protein 1+ (NEGATIVE) H 10/13/17 07:30 Urine Glucose (UA) Negative (NEGATIVE) 10/13/17 07:30 Urine Ketones Negative (NEGATIVE) 10/13/17 07:30 Urine Blood 2+ (NEGATIVE) H 10/13/17 07:30 Urine Nitrite Negative (NEGATIVE) 10/13/17 07:30 Urine Bilirubin Negative (<2.0 mg/dL) 10/13/17 07:30 Urine Urobilinogen 2.0 mg/dL (0.2-1.0) H 10/13/17 07:30 Ur Leukocyte Esterase Negative (NEGATIVE) 10/13/17 07:30 Urine WBC (Auto) None /hpf (3-5) 10/13/17 07:30 Urine RBC (Auto) 46 /hpf (0-3) 10/13/17 07:30 Ur Epithelial Cells Few /HPF (FEW) 10/13/17 07:30 Urine Mucus Moderate 10/13/17 07:30 lab noted Assessment: 10/13/17 12:02 withdrawal sx Plan: continue detox
[2017-10-13] MEDS: hydrOXYzine PAMOATE 50 MG CAPSULE (FP) PO PRN (15:21)
[2017-10-13] MEDS: MELATONIN 5 MG TABLETS PO PRN (22:36)
[2017-10-13] MEDS: THIAMINE HCL 100 MG TABLET (FP) PO SCH (22:36)
--- NOTE | 2017-10-13 23:42 | EKG ---
Test Reason : Blood Pressure : / mmHG Vent. Rate : 076 BPM Atrial Rate : 076 BPM P-R Int : 158 ms QRS Dur : 072 ms QT Int : 424 ms P-R-T Axes : 016 019 024 degrees QTc Int : 477 ms NORMAL SINUS RHYTHM NORMAL ECG WHEN COMPARED WITH ECG OF 11-SEP-2017 13:52, NO SIGNIFICANT CHANGE WAS FOUND Confirmed by NETO MAZARIEGOS MD ([id number]) on 10/13/2017 11:42:14 PM Referred By: Confirmed By:NETO MAZARIEGOS MD
[2017-10-14] MEDS: chlordiazePOXIDE HCL 25 MG CAPSULE PO SCH ×4 (06:10→22:28)
[2017-10-14] MEDS ORDERED: NICOTINE POLACRILEX 4 MG GUM BUC PRN (09:31)
--- NOTE | 2017-10-14 09:33 | PN ---
[facility] CIWA - CIWA Score Nausea/Vomitin-Mild Nausea/No Vomiting Muscle Tremors: 3 Anxiety: 3 Agitation: 3 Paroxysmal Sweats: 1-Minimal Palms Moist Orientation: 0-Oriented Tacttile Disturbances: 1-Very Mild Itch/Numbness Auditory Disturbances: 0-None Visual Disturbances: 0-None Headache: 0-None Present CIWA-Ar Total Score: 12 BHS Progress Note (SOAP) Subjective: sweat tremor gi distress trouble sleep at night aanxiety wants to discuss anxiety with a psychiatrist Objective: 10/14/17 09:33 Vital Signs Temperature 98.1 F 10/14/17 09:24 Pulse Rate 75 10/14/17 09:24 Respiratory Rate 20 10/14/17 09:24 Blood Pressure 113/76 10/14/17 09:24 O2 Sat by Pulse Oximetry (%) Laboratory Last Values Urine Color Yellow 10/13/17 07:30 Urine Appearance Clear 10/13/17 07:30 Urine pH 5.0 (5.0-8.0) 10/13/17 07:30 Ur Specific [place] 1.017 (1.001-1.035) 10/13/17 07:30 Urine Protein 1+ (NEGATIVE) H 10/13/17 07:30 Urine Glucose (UA) Negative (NEGATIVE) 10/13/17 07:30 Urine Ketones Negative (NEGATIVE) 10/13/17 07:30 Urine Blood 2+ (NEGATIVE) H 10/13/17 07:30 Urine Nitrite Negative (NEGATIVE) 10/13/17 07:30 Urine Bilirubin Negative (<2.0 mg/dL) 10/13/17 07:30 Urine Urobilinogen 2.0 mg/dL (0.2-1.0) H 10/13/17 07:30 Ur Leukocyte Esterase Negative (NEGATIVE) 10/13/17 07:30 Urine WBC (Auto) None /hpf (3-5) 10/13/17 07:30 Urine RBC (Auto) 46 /hpf (0-3) 10/13/17 07:30 Ur Epithelial Cells Few /HPF (FEW) 10/13/17 07:30 Urine Mucus Moderate 10/13/17 07:30 lab noted Assessment: 10/14/17 09:33 withdrawal sx Plan: continue detox
[2017-10-14 10:18] LABS: CHLORIDE 102 mmol/L (98-107); POTASSIUM 3.8 mmol/L (3.5-5.1); SODIUM 140 mmol/L (136-145)
[2017-10-14 10:19] LABS: HEMATOCRIT 39.6 % (32.4-45.2); MCH 31.8 pg (25.7-33.7); MCHC 32.8 g/dl (32.0-36.0); MEAN PLT VOLUME 8.8 fl (7.5-11.1); PLATELET COUNT 193 K/MM3 (134-434); RBC 4.08 M/mm3 (3.60-5.2); RDW 14.3 % (11.6-15.6); WHITE BLOOD COUNT 5.1 K/mm3 (4.0-10.0)
[2017-10-14] MEDS: PRENATAL VITAMINS W/ FOLIC ACID TABLET (FP) PO SCH (10:39)
[2017-10-14] MEDS: NICOTINE 21 MG/24 HOURS TOPICAL PATCH TD SCH (10:40)
[2017-10-14 11:15] LABS: ALBUMIN 3.5 g/dl (3.4-5.0); ALK PHOS 88 U/L (45-117); ANION GAP 8 (8-16); BILIRUBIN,TOTAL 0.9 mg/dL (0.2-1.0); BLOOD UREA NITROGEN 9 mg/dL (7-18); CALCIUM 8.8 mg/dL (8.5-10.1); CO2 30 mmol/L (21-32); CREATININE 0.5 mg/dL (0.55-1.02); GLUCOSE,RANDOM 85 mg/dL (74-106); SGOT/AST 49 U/L (15-37); SGPT/ALT 31 U/L (12-78)
[2017-10-14] MEDS: hydrOXYzine PAMOATE 50 MG CAPSULE (FP) PO PRN ×3 (12:20→22:28)
[2017-10-14] MEDS: THIAMINE HCL 100 MG TABLET (FP) PO SCH (22:27)
[2017-10-14] MEDS: MELATONIN 5 MG TABLETS PO PRN (22:28)
[2017-10-15] MEDS: chlordiazePOXIDE 5 MG CAPSULE PO SCH ×4 (06:00→22:28)
[2017-10-15] MEDS: hydrOXYzine PAMOATE 50 MG CAPSULE (FP) PO PRN ×3 (08:03→15:26)
--- NOTE | 2017-10-15 09:37 | PN ---
Psychiatric Progress Note Vital Signs: Vital Signs Period Temp Pulse Resp BP Sys/Hernandez Pulse Ox Last 24 Hr 97.5 F-98.1 F 75-82 16-20 119-136/70-94 Date of Session: 10/15/17 Chief Complaint:: Home medications HPI: Patient asking to send Volodymyr henriquez to her pharmacy upon dischrge Current Medications: Active Medications Generic Name Dose Route Start Last Admin Trade Name Freq PRN Reason Stop Dose Admin Acetaminophen 650 mg 10/13/17 02:03 Tylenol - PO Q4H PRN FEVER Al Hydroxide/Mg Hydroxide 30 ml 10/13/17 02:03 Mylanta Oral Suspension - PO Q6H PRN DYSPEPSIA Chlordiazepoxide HCl 15 mg 10/15/17 05:00 10/15/17 06:00 Librium - PO 10/15/17 23:01 15 mg [id number] LICHA Administration Chlordiazepoxide HCl 25 mg 10/13/17 02:03 10/13/17 08:50 Librium - PO 10/16/17 02:02 25 mg Q4H PRN Administration WITHDRAWAL(CONT SUBST) Chlordiazepoxide HCl 10 mg 10/16/17 05:00 Librium - PO 10/16/17 23:01 [id number] LICHA Eucalyptus/Menthol/Phenol/Sorbitol 1 each 10/13/17 02:03 Cepastat Lozenge - MM Q4H PRN SORE THROAT Guaifenesin 10 ml 10/13/17 02:03 Robitussin Dm - PO Q6H PRN COUGH Hydroxyzine Pamoate 50 mg 10/13/17 08:59 10/15/17 08:03 Vistaril - PO 50 mg Q4H PRN Administration AGITATION Ibuprofen 400 mg 10/13/17 02:03 10/13/17 03:25 Motrin - PO 400 mg Q6H PRN Administration PAIN LEVEL 4-6 Loperamide HCl 4 mg 10/13/17 02:03 Imodium - PO Q6H PRN DIARRHEA Magnesium Citrate 300 ml 10/13/17 02:03 Citroma - PO Q48H PRN CONSTIPATION Magnesium Hydroxide 30 ml 10/13/17 02:03 10/14/17 14:26 Milk Of Magnesia - PO 30 ml DAILY PRN Administration CONSTIPATION Melatonin 5 mg 10/13/17 22:00 10/14/17 22:28 Melatonin PO 5 mg HS PRN Administration INSOMNIA Nicotine 21 mg 10/14/17 10:00 10/14/17 10:40 Nicoderm Patch - TD 21 mg DAILY LICHA Administration Nicotine Polacrilex 4 mg 10/14/17 09:31 Nicorette Gum - BUC Q2H PRN NICOTINE REPLACEMENT RX Multivit/Folic Acid/Iron 1 tab 10/13/17 10:00 10/14/17 10:39 Vitamins (Sjr) - PO 1 tab DAILY LICHA Administration Pseudoephedrine/Triprolidine 1 combo 10/13/17 02:03 Actifed - PO TID PRN NASAL CONGESTION Thiamine HCl 100 mg 10/13/17 22:00 10/14/17 22:27 Vitamin B1 - PO 100 mg HS LICHA Administration Medication(s) Change(s): Vistaril order 50mg po tid issued Provider note:: Vistaril order 50mg po tid issued Mental Status Exam - Mental Status Exam Alert and Oriented to: Time, Place, Person Cognitive Function: Fair Patient Appearance: Well Groomed Mood: Anxious Affect: Mood Congruent Patient Behavior: Cooperative Speech Pattern: Appropriate Voice Loudness: Mildly Loud Thought Process: Goal Oriented Thought Disorder: Being Controlled Hallucinations: Denies Suicidal Ideation: Denies Homicidal Ideation: Denies Insight/Judgement: Fair Sleep: Difficulty falling asleep Appetite: Weight gain Muscle strength/Tone: Normal Gait/Station: Normal Additional Comments: Vistaril order 50mg po tid issued Psychiatric Treatment Plan - Problem List (1) Alcohol dependence with uncomplicated withdrawal Current Visit: Yes (2) Anxiety Current Visit: Yes (3) Depression Current Visit: Yes (4) Alcohol dependence with uncomplicated intoxication Current Visit: No (5) Nicotine dependence Current Visit: No Qualifiers: Nicotine product type: cigarettes Substance use status: in withdrawal Qualified Code(s): F17.213 - Nicotine dependence, cigarettes, with withdrawal (6) Drug-induced mood disorder Current Visit: No Initial treatment plan: Vistaril order 50mg po tid issued
[2017-10-15] MEDS: PRENATAL VITAMINS W/ FOLIC ACID TABLET (FP) PO SCH (11:03)
[2017-10-15] MEDS: NICOTINE 21 MG/24 HOURS TOPICAL PATCH TD SCH (11:04)
--- NOTE | 2017-10-15 11:55 | PN ---
BHS Progress Note (SOAP) Subjective: feeling better no tremor no sweat social with peers in day room Objective: 10/15/17 11:56 Vital Signs Temperature 98.1 F 10/15/17 09:22 Pulse Rate 82 10/15/17 09:22 Respiratory Rate 20 10/15/17 09:22 Blood Pressure 123/70 10/15/17 09:22 O2 Sat by Pulse Oximetry (%) Laboratory Last Values WBC 5.1 K/mm3 (4.0-10.0) 10/14/17 07:30 RBC 4.08 M/mm3 (3.60-5.2) 10/14/17 07:30 Hgb 13.0 GM/dL (10.7-15.3) 10/14/17 07:30 Hct 39.6 % (32.4-45.2) 10/14/17 07:30 MCV 97.0 fl (80-96) H 10/14/17 07:30 MCH 31.8 pg (25.7-33.7) 10/14/17 07:30 MCHC 32.8 g/dl (32.0-36.0) 10/14/17 07:30 RDW 14.3 % (11.6-15.6) 10/14/17 07:30 Plt Count 193 K/MM3 (134-434) 10/14/17 07:30 MPV 8.8 fl (7.5-11.1) 10/14/17 07:30 Sodium 140 mmol/L (136-145) 10/14/17 07:30 Potassium 3.8 mmol/L (3.5-5.1) 10/14/17 07:30 Chloride 102 mmol/L (98-107) 10/14/17 07:30 Carbon Dioxide 30 mmol/L (21-32) 10/14/17 07:30 Anion Gap 8 (8-16) 10/14/17 07:30 BUN 9 mg/dL (7-18) 10/14/17 07:30 Creatinine 0.5 mg/dL (0.55-1.02) L 10/14/17 07:30 Creat Clearance w eGFR > 60 (>60) 10/14/17 07:30 Random Glucose 85 mg/dL (74-106) 10/14/17 07:30 Calcium 8.8 mg/dL (8.5-10.1) 10/14/17 07:30 Total Bilirubin 0.9 mg/dL (0.2-1.0) D 10/14/17 07:30 AST 49 U/L (15-37) H 10/14/17 07:30 ALT 31 U/L (12-78) 10/14/17 07:30 Alkaline Phosphatase 88 U/L (45-117) 10/14/17 07:30 Total Protein 7.0 g/dl (6.4-8.2) 10/14/17 07:30 Albumin 3.5 g/dl (3.4-5.0) 10/14/17 07:30 Urine Color Yellow 10/13/17 07:30 Urine Appearance Clear 10/13/17 07:30 Urine pH 5.0 (5.0-8.0) 10/13/17 07:30 Ur Specific [place] 1.017 (1.001-1.035) 10/13/17 07:30 Urine Protein 1+ (NEGATIVE) H 10/13/17 07:30 Urine Glucose (UA) Negative (NEGATIVE) 10/13/17 07:30 Urine Ketones Negative (NEGATIVE) 10/13/17 07:30 Urine Blood 2+ (NEGATIVE) H 10/13/17 07:30 Urine Nitrite Negative (NEGATIVE) 10/13/17 07:30 Urine Bilirubin Negative (<2.0 mg/dL) 10/13/17 07:30 Urine Urobilinogen 2.0 mg/dL (0.2-1.0) H 10/13/17 07:30 Ur Leukocyte Esterase Negative (NEGATIVE) 10/13/17 07:30 Urine WBC (Auto) None /hpf (3-5) 10/13/17 07:30 Urine RBC (Auto) 46 /hpf (0-3) 10/13/17 07:30 Ur Epithelial Cells Few /HPF (FEW) 10/13/17 07:30 Urine Mucus Moderate 10/13/17 07:30 RPR Titer Nonreactive (NONREACTIVE) 10/14/17 07:30 lab noted Assessment: 10/15/17 11:56 mild withdrawal sx Plan: medically supervised detox
[2017-10-15] MEDS: MELATONIN 5 MG TABLETS PO PRN (22:28)
[2017-10-15] MEDS: THIAMINE HCL 100 MG TABLET (FP) PO SCH (22:28)
[2017-10-16] MEDS ORDERED: chlordiazePOXIDE HCL 10 MG CAPSULE PO SCH (05:00)
[2017-10-16] MEDS: hydrOXYzine PAMOATE 50 MG CAPSULE (FP) PO PRN (05:49)
[2017-10-16 09:25] VITALS: BP 121/87; PULSE 83; TEMP 98.1
--- NOTE | 2017-10-16 09:54 | DS ---
[facility] Detox Discharge Summary Admission Date: 10/13/17 Discharge Date: 10/16/17 - History Present History: Alcohol Dependence Additional Comments: 36 years old female admitted for alcohol withdrawal sx on 10/04/17 completed alcohol detox regimen tolerated well denies alcohol withdrawal sx alert oriented x 3 no acute distress wants to follow up with [facility] brief motivational intervention x 5" determine to maintain sober in recovery - Physical Exam Results Vital Signs: Vital Signs Temperature 98.1 F 10/16/17 09:25 Pulse Rate 83 10/16/17 09:25 Respiratory Rate 20 10/16/17 09:25 Blood Pressure 121/87 10/16/17 09:25 O2 Sat by Pulse Oximetry (%) Pertinent Admission Physical Exam Findings: withdrawal sx Vital Signs Temperature 98.1 F 10/16/17 09:25 Pulse Rate 83 10/16/17 09:25 Respiratory Rate 20 10/16/17 09:25 Blood Pressure 121/87 10/16/17 09:25 O2 Sat by Pulse Oximetry (%) Laboratory Last Values WBC 5.1 K/mm3 (4.0-10.0) 10/14/17 07:30 RBC 4.08 M/mm3 (3.60-5.2) 10/14/17 07:30 Hgb 13.0 GM/dL (10.7-15.3) 10/14/17 07:30 Hct 39.6 % (32.4-45.2) 10/14/17 07:30 MCV 97.0 fl (80-96) H 10/14/17 07:30 MCH 31.8 pg (25.7-33.7) 10/14/17 07:30 MCHC 32.8 g/dl (32.0-36.0) 10/14/17 07:30 RDW 14.3 % (11.6-15.6) 10/14/17 07:30 Plt Count 193 K/MM3 (134-434) 10/14/17 07:30 MPV 8.8 fl (7.5-11.1) 10/14/17 07:30 Sodium 140 mmol/L (136-145) 10/14/17 07:30 Potassium 3.8 mmol/L (3.5-5.1) 10/14/17 07:30 Chloride 102 mmol/L (98-107) 10/14/17 07:30 Carbon Dioxide 30 mmol/L (21-32) 10/14/17 07:30 Anion Gap 8 (8-16) 10/14/17 07:30 BUN 9 mg/dL (7-18) 10/14/17 07:30 Creatinine 0.5 mg/dL (0.55-1.02) L 10/14/17 07:30 Creat Clearance w eGFR > 60 (>60) 10/14/17 07:30 Random Glucose 85 mg/dL (74-106) 10/14/17 07:30 Calcium 8.8 mg/dL (8.5-10.1) 10/14/17 07:30 Total Bilirubin 0.9 mg/dL (0.2-1.0) D 10/14/17 07:30 AST 49 U/L (15-37) H 10/14/17 07:30 ALT 31 U/L (12-78) 10/14/17 07:30 Alkaline Phosphatase 88 U/L (45-117) 10/14/17 07:30 Total Protein 7.0 g/dl (6.4-8.2) 10/14/17 07:30 Albumin 3.5 g/dl (3.4-5.0) 10/14/17 07:30 Urine Color Yellow 10/13/17 07:30 Urine Appearance Clear 10/13/17 07:30 Urine pH 5.0 (5.0-8.0) 10/13/17 07:30 Ur Specific [place] 1.017 (1.001-1.035) 10/13/17 07:30 Urine Protein 1+ (NEGATIVE) H 10/13/17 07:30 Urine Glucose (UA) Negative (NEGATIVE) 10/13/17 07:30 Urine Ketones Negative (NEGATIVE) 10/13/17 07:30 Urine Blood 2+ (NEGATIVE) H 10/13/17 07:30 Urine Nitrite Negative (NEGATIVE) 10/13/17 07:30 Urine Bilirubin Negative (<2.0 mg/dL) 10/13/17 07:30 Urine Urobilinogen 2.0 mg/dL (0.2-1.0) H 10/13/17 07:30 Ur Leukocyte Esterase Negative (NEGATIVE) 10/13/17 07:30 Urine WBC (Auto) None /hpf (3-5) 10/13/17 07:30 Urine RBC (Auto) 46 /hpf (0-3) 10/13/17 07:30 Ur Epithelial Cells Few /HPF (FEW) 10/13/17 07:30 Urine Mucus Moderate 10/13/17 07:30 RPR Titer Nonreactive (NONREACTIVE) 10/14/17 07:30 lab noted - Treatment Hospital Course: Detox Protocol Followed, Detoxed Safely, Responded well, Discharged Condition Good, Rehab Referral Accepted Patient has Accepted a Rehab Referral to: [facility] - Medication Discharge Medications: Ambulatory Orders hydrOXYzine PAMOATE [Vistaril -] 50 mg PO Q4H PRN #90 capsule 10/15/17 - Diagnosis (1) HTN (hypertension) Current Visit: Yes Status: Chronic Qualifiers: Hypertension type: essential hypertension Qualified Code(s): I10 - Essential (primary) hypertension (2) Alcohol dependence with uncomplicated intoxication Current Visit: Yes Status: Acute (3) Nicotine dependence Current Visit: Yes Status: Acute Qualifiers: Nicotine product type: cigarettes Substance use status: in withdrawal Qualified Code(s): F17.213 - Nicotine dependence, cigarettes, with withdrawal - AMA Did Patient Leave Against Medical Advice: No
== END 2017-10-16 09:30 | disposition home or self-care (01) | DRG 775 ==
LOC: YASAS 01:12 → Y6N 01:56
PROVIDERS: ADMIT Surgery; ATTEND Surgery
PROC: HZ2ZZZZ Detoxification Services for Substance Abuse Treatment (ICD-10-PCS; principal; 2017-10-13)
DX: F10.230 Alcohol dependence with withdrawal, uncomplicated (principal); F17.210 Nicotine dependence, cigarettes, uncomplicated; F19.24 Other psychoactive substance dependence with psychoactive substance-induced mood disorder; F41.9 Anxiety disorder, unspecified; F32.9 Major depressive disorder, single episode, unspecified; I10 Essential (primary) hypertension
CPT/HCPCS: 36415; 80053; 81003; 81015; 85027; 86593; 93005; 93010; J0735

== ENCOUNTER 2018-02-11 13:38 | Inpatient (IN) | payer OTHER ==
[2018-02-11 14:49] VITALS: BMI 29.4
--- NOTE | 2018-02-11 19:00 | HP ---
"CIWA Score - CIWA Score Nausea/Vomitin-No Nausea/No Vomiting Muscle Tremors: 4-Moderate,w/Arms Extend Anxiety: 1-Mildly Anxious Agitation: 1-Slight > Activity Paroxysmal Sweats: 3 (Mild perspiration on forehead) Orientation: 0-Oriented Tacttile Disturbances: 0-None Auditory Disturbances: 0-None Visual Disturbances: 0-None Headache: 2-Mild CIWA-Ar Total Score: 11 Admission ROS S - HPI Chief Complaint: I'm here for detox from alcohol. I'm having withdrawal symptoms. Allergies/Adverse Reactions: Allergies Allergy/AdvReac Type Severity Reaction Status Date / Time No Known Allergies Allergy Verified 02/11/18 16:47 History of Present Illness: Alcohol use disorder since age 35. Nicotine use disorder since age 13. States only able to maintain sobriety while in a enclosed, controlled environment. Hx of blackouts. Denies hx seizures. CIWA score '11' w/ GLENDY of 0.146 Hx uncontrolled high blood pressure and not on medications. Hx, hypoglycemia, states as low as 27. Checks own finger sticks at home. Hx Rheumatoid arthritis. Search Terms: Poonam Burgos, 1980 Search Date: 02/11/2018 06:54:12 PM The Drug Utilization Report below displays all of the controlled substance prescriptions, if any, that your patient has filled in the last twelve months. The information displayed on this report is compiled from pharmacy submissions to the Department, and accurately reflects the information as submitted by the pharmacies. This report was requested by: Shanon Little | Reference #: [id number] Patient Name: Poonam Burgos Date: 1980 Address: [address] [place] [address] Sex: Female Rx Written Rx Dispensed Drug Quantity Days Supply Prescriber Name 01/15/2018 01/15/2018 tramadol hcl 50 mg tablet 20 5 Blayne Gilliam MD 04/03/2017 04/03/2017 tramadol hcl 50 mg tablet 10 5 Blayne Gilliam MD Patient Name: Poonam Burgos Date: 1980 Address: [address] [place] [address] Sex: Female Rx Written Rx Dispensed Drug Quantity Days Supply Prescriber Name 09/03/2017 09/03/2017 chlordiazepoxide 5 mg capsule 30 2 Yolie Abdul States has an appointment 03/09 to f/u with SENIOR PROPERTY ACCOUNTANT issues. Exam Limitations: No Limitations - Ebola screening Have you traveled outside of the country in the last 21 days: No Have you had contact with anyone from an Ebola affected area: No Have you been sick,other than usual withdrawal symptoms: No Do you have a fever: No - Review of Systems Constitutional: Changes in sleep (Difficulty falling asleep. Has used ambien in the past.) EENT: reports: No Symptoms Reported, Nose Congestion Respiratory: reports: Shortness of Breath (when laying down and associated w/ cough) Cardiac: reports: No Symptoms Reported, Other (States blood pressure is high all the time - but not prescribed any meds.) GI: reports: Diarrhea (watery, mustartd colored x 2 months.), Other (Gastic bypass in 2012.) : reports: No Symptoms Reported Musculoskeletal: reports: Joint Pain (Hand and feet intermittently. Pain associated w/ rainy or cold weather. Uses patches or icy hot sometimes for pain relief instead of Tramadol.), Joint Stiffness (of fingers. States has rheumatoid arthrits. States takes Tramadol for arthritic pain. No pain at thisd time.) Integumentary: reports: No Symptoms Reported Neuro: reports: Headache (mild), Tremors Endocrine: reports: Excessive Sweating, Other (Hx very low blood sugar.) Hematology: reports: Anemia (Gets B-12 shots and iron) Psychiatric: reports: Judgement Intact, Orientated x3, Agitated, Anxious, Depressed (Denies thoughts of harming self or others) Patient History - Patient Medical History Hx Anemia: No Hx Asthma: No Hx Chronic Obstructive Pulmonary Disease (COPD): No Hx Cancer: No Hx Cardiac Disorders: No Hx Congestive Heart Failure: No Hx Hypertension: No Hx Hypercholesterolemia: No Hx Pacemaker: No HX Cerebrovascular Accident: No Hx Seizures: No Hx Dementia: No Hx Diabetes: No Hx Gastrointestinal Disorders: No Hx Liver Disease: No Hx Genitourinary Disorders: No Hx Sexually Transmitted Disorders: No Hx Renal Disease (ESRD): No Hx Thyroid Disease: No Hx Human Immunodeficiency Virus (HIV): No (Negative 09/04/17 ) Hx Hepatitis C: No Hx Depression: Yes Hx Suicide Attempt: No Hx Bipolar Disorder: No Hx Schizophrenia: No - Patient Surgical History Past Surgical History: Yes Hx Neurologic Surgery: No Hx Cataract Extraction: No Hx Cardiac Surgery: No Hx Lung Surgery: No Hx Breast Surgery: No Hx Breast Biopsy: No Hx Abdominal Surgery: Yes (s/p lap gasric by pass in 10/29/12) Hx Appendectomy: No Hx Cholecystectomy: No Hx Genitourinary Surgery: No Hx Section: No Hx Orthopedic Surgery: No Hx Hysterectomy: No Anesthesia Reaction: No - PPD History Previous Implant?: Yes Documented Results: Negative w/proof Implanted On Prior [facility] Admission?: Yes Date: 09/13/17 Results: 0 mm PPD to be Administered?: No - Reproductive History Patient is a Female of Child Bearing Age (11 -55 yrs old): Yes Last Menstrual Period: 01/24/18 LMP comment: States has period now and it has been known to last 2-3 weeks. Patient : No - Smoking Cessation Smoking history: Current every day smoker Have you smoked in the past 12 months: Yes Aproximately how many cigarettes per day: 10 (Has decreased from 1 PPD) Hx Chewing Tobacco Use: No Initiated information on smoking cessation: Yes 'Breaking Loose' booklet given: 02/11/18 - Substance & Tx. History Hx Alcohol Use: Yes Hx Substance Use: Yes Substance Use Type: Alcohol Hx Substance Use Treatment: Yes (detox ) - Substances Abused Alcohol-vodka/wine Route: Oral Frequency: Daily Amount used: 2 pts. Age of first use: 35 Date of Last Use: 02/11/18 Family Disease History - Family Disease History Family Disease History: Heart Disease: Father (alcohol, depressiondeceased), Other: Father, Mother (Hyperthyroidism), Brother (Bipolar, Schizophrenia) Admission Physical Exam S - Vital Signs Vital Signs: Vital Signs - 24 hr 02/11/18 14:46 Temperature 98.5 F Pulse Rate 121 H Respiratory 20 Rate Blood Pressure 135/101 - Physical General Appearance: Yes: Moderate Distress, Alcohol on Breath, Tremorous, Sweating, Anxious HEENTM: Yes: Hearing grossly Normal, Normal ENT Inspection, Normocephalic, GERALDO (4 mm), Nasal Congestion (Clear nasal discharge), Orbits (Eyes appear to be bulging) Respiratory: Yes: Lungs Clear, Normal Breath Sounds, No Respiratory Distress Neck: Yes: No masses,lesions,Nodules, Supple Breast: Yes: Breast Exam Deferred Cardiology: Yes: Regular Rhythm, S1, S2, Tachycardia Abdominal: Yes: Non Tender, Soft, Increased Bowel Sounds Genitourinary: Yes: Within Normal Limits Back: Yes: Normal Inspection Musculoskeletal: Yes: full range of Motion, Gait Steady Extremities: Yes: Normal Capillary Refill, Normal Range of Motion, Non-Tender, Tremors (of hands when arms extended) Neurological: Yes: child support case officer II-XII NML intact, Fully Oriented, Alert, Motor Strength 5/5, Normal Mood/Affect Integumentary: Yes: Normal Color, Dry, Warm, Diaphoresis (Mild perspiration on forehead) Lymphatic: Yes: Within Normal Limits - Diagnostic (1) Nicotine dependence Current Visit: Yes Status: Chronic Qualifiers: Nicotine product type: cigarettes Substance use status: in withdrawal Qualified Code(s): F17.213 - Nicotine dependence, cigarettes, with withdrawal (2) HTN (hypertension) Current Visit: No Status: Chronic Qualifiers: Hypertension type: unspecified Qualified Code(s): I10 - Essential (primary ) hypertension (3) Status post bariatric surgery Current Visit: Yes Status: Chronic (4) Alcohol dependence with withdrawal with complication Current Visit: Yes Status: Acute (5) Tachycardia Current Visit: Yes Status: Acute (6) Hypoglycemia Current Visit: Yes Status: Acute (7) History of hypoglycemia Current Visit: Yes Status: Acute Cleared for Admission [facility] - Detox or Rehab [facility] Level of Care: Medically Managed Detox Regimen/Protocol: Librium [facility] Breath Alcohol Content Breath Alcohol Content: 0.146 Urine Pregancy Test - Result Urine Test Results: Negative- NO Line Present Urine Drug Screen - Results Drug Screen Negative: No Urine Drug Screen Results: BZO-Benzodiazepines"
[2018-02-11] MEDS ORDERED: MENTHOL/PHENOL 1 EACH UD MM PRN (19:33)
[2018-02-11] MEDS ORDERED: P-EPHED 60MG/TRIPROLIDI 2.5MG TABLET PO PRN (19:33)
[2018-02-11] MEDS ORDERED: MAG HYDROX/AL HYDROX/SIMETH 30 ML UNIT-DOSE CUP PO PRN (19:33)
[2018-02-11] MEDS ORDERED: MAGNESIUM CITRATE 300 ML BOTTLE PO PRN (19:33)
[2018-02-11] MEDS ORDERED: NICOTINE POLACRILEX 2 MG GUM BC PRN (19:33)
[2018-02-11] MEDS ORDERED: ACETAMINOPHEN 325 MG TABLET (FP) PO PRN (19:33)
[2018-02-11] MEDS ORDERED: MAGNESIUM HYDROX 2400MG/30ML ORAL SUSPENSION 30 ML CUP PO PRN (19:33)
[2018-02-11] MEDS ORDERED: guaiFENesin/D-METHORPHAN HB 10 ML UNIT-DOSE CUPS PO PRN (19:33)
[2018-02-11] MEDS ORDERED: LOPERAMIDE HCL 2 MG CAPSULE PO PRN (19:33)
[2018-02-11] MEDS ORDERED: chlordiazePOXIDE HCL 25 MG CAPSULE PO ONE (19:45)
[2018-02-11] MEDS ORDERED: MELATONIN 5 MG TABLETS PO PRN (22:00)
[2018-02-11] MEDS: chlordiazePOXIDE HCL 25 MG CAPSULE PO SCH (22:19)
[2018-02-11] MEDS: THIAMINE HCL 100 MG TABLET (FP) PO SCH (22:19)
[2018-02-11 23:24] LABS: URINE APPEARANCE TURBID; URINE BILIRUBIN NEGATIVE (<2.0 mg/dL); URINE COLOR RED; URINE GLUCOSE (UA) NEGATIVE (NEGATIVE); URINE KETONE 1+ (NEGATIVE); URINE LEUK ESTERASE NEGATIVE (NEGATIVE); URINE NITRITE NEGATIVE (NEGATIVE); URINE UROBILINOGEN NEGATIVE mg/dL (0.2-1.0)
[2018-02-11 23:27] LABS: URINE PROTEIN 2+ (NEGATIVE)
[2018-02-11 23:29] LABS: URINE MUCUS RARE
[2018-02-12] MEDS: chlordiazePOXIDE HCL 25 MG CAPSULE PO SCH ×4 (05:09→22:13)
--- NOTE | 2018-02-12 09:10 | CONSULT ---
[facility] Psychiatric Consult - Data Date of interview: 02/12/18 Admission source: [facility] Identifying data: Patient is a 37 year old single female, mother of two, unemployed, and domiciled. This is one of multiple admissions for patient. Pt. admitted to for alcohol dependence. Substance Abuse History: Smoking Cessation. Smoking history: Current every day smoker. Have you smoked in the past 12 months: Yes. Aproximately how many cigarettes per day: 10 (Has decreased from 1 PPD). Hx Chewing Tobacco Use: No. Initiated information on smoking cessation: Yes. 'Breaking Loose' booklet given: 02/11/18. - Substance & Tx. History. Hx Alcohol Use: Yes. Hx Substance Use: Yes. Substance Use Type: Alcohol. Hx Substance Use Treatment: Yes (detox ). - Substances Abused. Alcohol-vodka/wine. Route: Oral. Frequency: Daily. Amount used: 2 pts. Age of first use: 35. Date of Last Use : 02/11/18 Medical History: s/p lap gasric by pass in 10/29/12 Psychiatric History: Ms. Burgos reports h/o outpatient psychiatric care at [facility] approximately 2 years ago. She reports being prescribed zoloft and other psychotrophic medications she is unable to recall. Pt. discontinued treatment after several months because she felt the medications were ineffective. She reports a h/o depression, anxiety, and panic attacks. Ms. Burgos denies current outpatient psychiatric care. Presently, she is c/o anxiety and difficulty sleeping. Physical/Sexual Abuse/Trauma History: denies. Mental Status Exam - Mental Status Exam Alert and Oriented to: Time, Place, Person Cognitive Function: Good Patient Appearance: Well Groomed Mood: Withdrawn, Anxious, Euthymic Affect: Mood Congruent Patient Behavior: Fatigued, Cooperative Speech Pattern: Appropriate Voice Loudness: Normal Thought Process: Intact, Goal Oriented Thought Disorder: Not Present Hallucinations: Denies Suicidal Ideation: Denies Homicidal Ideation: Denies Insight/Judgement: Poor Sleep: Poorly Appetite: Fair Muscle strength/Tone: Normal Gait/Station: Normal Psychiatric Findings - Problem List ([place] 1, 2,3) (1) Alcohol dependence with withdrawal with complication Current Visit: Yes Status: Acute (2) Insomnia Current Visit: Yes Status: Acute (3) Anxiety Current Visit: Yes Status: Chronic - Initial Treatment Plan Initial Treatment Plan: Psychoeducation provided. Detoxification in progress. Will increase Melatonin to 10mg. Vistaril 50mg q4h ordered by FEATHERER. Benefits and side effects discussed. Verbal consent given.
--- NOTE | 2018-02-12 09:59 | EKG ---
Test Reason : Blood Pressure : / mmHG Vent. Rate : 108 BPM Atrial Rate : 108 BPM P-R Int : 134 ms QRS Dur : 066 ms QT Int : 362 ms P-R-T Axes : 078 046 030 degrees QTc Int : 485 ms POOR DATA QUALITY, INTERPRETATION MAY BE ADVERSELY AFFECTED SINUS TACHYCARDIA RIGHT ATRIAL ENLARGEMENT BORDERLINE ECG WHEN COMPARED WITH ECG OF 13-OCT-2017 03:18, NO SIGNIFICANT CHANGE WAS FOUND Confirmed by VEGA SNEED, GELY ([id number]) on 02/12/2018 9:59:13 AM Referred By: Confirmed By:GELY FERRARI MD
[2018-02-12 10:32] LABS: HEMATOCRIT 37.9 % (32.4-45.2); HEMOGLOBIN 12.6 GM/dL (10.7-15.3); MCH 32.8 pg (25.7-33.7); MCHC 33.1 g/dl (32.0-36.0); MEAN CELL VOLUME 99.2 fl (80-96); PLATELET COUNT 169 K/MM3 (134-434); RBC 3.83 M/mm3 (3.60-5.2); RDW 13.7 % (11.6-15.6); WHITE BLOOD COUNT 5.6 K/mm3 (4.0-10.0)
[2018-02-12] MEDS: NICOTINE 14 MG/24 HOURS TOPICAL PATCH TD SCH (11:08)
[2018-02-12] MEDS: PRENATAL VITAMINS W/ FOLIC ACID TABLET (FP) PO SCH (11:08)
[2018-02-12] MEDS: cloNIDine HCL 0.1 MG TABLET PO PRN (11:08)
[2018-02-12] MEDS: THIAMINE HCL 100 MG TABLET (FP) PO SCH ×2 (11:09→22:13)
[2018-02-12] MEDS: IBUPROFEN 400 MG TABLET (FP) PO PRN (11:11)
[2018-02-12 12:20] LABS: ALBUMIN 3.3 g/dl (3.4-5.0); ALK PHOS 77 U/L (45-117); ANION GAP 7 MMOL/L (8-16); BILIRUBIN,TOTAL 0.6 mg/dL (0.2-1); BLOOD UREA NITROGEN 13 mg/dL (7-18); CALCIUM 8.5 mg/dL (8.5-10.1); CHLORIDE 102 mmol/L (98-107); CO2 29 mmol/L (21-32); CREATININE 0.5 mg/dL (0.55-1.3); GLUCOSE,RANDOM 84 mg/dL (74-106); POTASSIUM 3.3 mmol/L (3.5-5.1); SGOT/AST 58 U/L (15-37); SGPT/ALT 26 U/L (13-61); SODIUM 138 mmol/L (136-145); TOT PROT 6.8 g/dl (6.4-8.2)
--- NOTE | 2018-02-12 12:51 | PN ---
S CIWA - CIWA Score Nausea/Vomitin-Mild Nausea/No Vomiting Muscle Tremors: 3 Anxiety: 3 Agitation: 4-Moderately Restless Paroxysmal Sweats: 1-Minimal Palms Moist Orientation: 0-Oriented Tacttile Disturbances: 1-Very Mild Itch/Numbness Auditory Disturbances: 0-None Visual Disturbances: 1-Very Mild Sensitivity Headache: 0-None Present CIWA-Ar Total Score: 14 BHS Progress Note (SOAP) Subjective: sweat tremor restlessness Objective: 02/12/18 12:51 Vital Signs Temperature 98 F 02/12/18 09:55 Pulse Rate 92 H 02/12/18 09:55 Respiratory Rate 18 02/12/18 09:55 Blood Pressure 136/89 02/12/18 09:55 O2 Sat by Pulse Oximetry (%) Laboratory Last Values WBC 5.6 K/mm3 (4.0-10.0) 02/12/18 07:00 RBC 3.83 M/mm3 (3.60-5.2) 02/12/18 07:00 Hgb 12.6 GM/dL (10.7-15.3) 02/12/18 07:00 Hct 37.9 % (32.4-45.2) 02/12/18 07:00 MCV 99.2 fl (80-96) H 02/12/18 07:00 MCH 32.8 pg (25.7-33.7) 02/12/18 07:00 MCHC 33.1 g/dl (32.0-36.0) 02/12/18 07:00 RDW 13.7 % (11.6-15.6) 02/12/18 07:00 Plt Count 169 K/MM3 (134-434) 02/12/18 07:00 MPV 9.0 fl (7.5-11.1) 02/12/18 07:00 Sodium 138 mmol/L (136-145) 02/12/18 07:00 Potassium 3.3 mmol/L (3.5-5.1) L 02/12/18 07:00 Chloride 102 mmol/L (98-107) 02/12/18 07:00 Carbon Dioxide 29 mmol/L (21-32) 02/12/18 07:00 Anion Gap 7 MMOL/L (8-16) L 02/12/18 07:00 BUN 13 mg/dL (7-18) 02/12/18 07:00 Creatinine 0.5 mg/dL (0.55-1.3) L 02/12/18 07:00 Creat Clearance w eGFR > 60 (>60) 02/12/18 07:00 POC Glucometer 100 UNITS (80-120) 02/12/18 05:12 Random Glucose 84 mg/dL (74-106) 02/12/18 07:00 Calcium 8.5 mg/dL (8.5-10.1) 02/12/18 07:00 Total Bilirubin 0.6 mg/dL (0.2-1) 02/12/18 07:00 AST 58 U/L (15-37) H 02/12/18 07:00 ALT 26 U/L (13-61) 02/12/18 07:00 Alkaline Phosphatase 77 U/L (45-117) 02/12/18 07:00 Total Protein 6.8 g/dl (6.4-8.2) 02/12/18 07:00 Albumin 3.3 g/dl (3.4-5.0) L 02/12/18 07:00 Urine Color Red 02/11/18 23:10 Urine Appearance Turbid 02/11/18 23:10 Urine pH 5.0 (5.0-8.0) 02/11/18 23:10 Ur Specific [place] 1.030 (1.001-1.035) 02/11/18 23:10 Urine Protein 2+ (NEGATIVE) H 02/11/18 23:10 Urine Glucose (UA) Negative (NEGATIVE) 02/11/18 23:10 Urine Ketones 1+ (NEGATIVE) H 02/11/18 23:10 Urine Blood 2+ (NEGATIVE) H 02/11/18 23:10 Urine Nitrite Negative (NEGATIVE) 02/11/18 23:10 Urine Bilirubin Negative (<2.0 mg/dL) 02/11/18 23:10 Urine Urobilinogen Negative mg/dL (0.2-1.0) 02/11/18 23:10 Ur Leukocyte Esterase Negative (NEGATIVE) 02/11/18 23:10 Urine WBC (Auto) 3346 /hpf (3-5) 02/11/18 23:10 Urine RBC (Auto) 861 /hpf (0-3) 02/11/18 23:10 Urine Mucus Rare 02/11/18 23:10 RPR Titer Nonreactive (NONREACTIVE) 02/12/18 07:00 low K+ lab noted repeat ua Assessment: 02/12/18 12:53 withdrawal sx hypokalemia Plan: continue detox potassium supplement repeat K+
[2018-02-12] MEDS ORDERED: ONDANSETRON *ODT* 4 MG TABLET SL ONE (12:55)
[2018-02-12] MEDS: hydrOXYzine PAMOATE 50 MG CAPSULE (FP) PO PRN (13:34)
[2018-02-12] MEDS: POTASSIUM CHLORIDE TABS 20 MEQ TABLET.ER (FP) PO SCH ×2 (13:35→22:13)
[2018-02-12] MEDS: chlordiazePOXIDE HCL 25 MG CAPSULE PO PRN (13:35)
--- NOTE | 2018-02-12 16:18 | EKG ---
Test Reason : Blood Pressure : / mmHG Vent. Rate : 073 BPM Atrial Rate : 073 BPM P-R Int : 136 ms QRS Dur : 074 ms QT Int : 444 ms P-R-T Axes : 039 041 027 degrees QTc Int : 489 ms NORMAL SINUS RHYTHM PROLONGED QT ABNORMAL ECG WHEN COMPARED WITH ECG OF 11-FEB-2018 20:09, NO SIGNIFICANT CHANGE WAS FOUND Confirmed by GELY FERRARI MD ([id number]) on 02/12/2018 4:18:38 PM Referred By: Confirmed By:GELY FERRARI MD
--- NOTE | 2018-02-12 17:02 | PN ---
[facility] Progress Note Note: Vital Signs Temperature 97.7 F 02/12/18 13:33 Pulse Rate 81 02/12/18 13:33 Respiratory Rate 18 02/12/18 13:33 Blood Pressure 118/74 02/12/18 13:33 O2 Sat by Pulse Oximetry (%) Report received from ZOIE Saldana nausea and vomiting although taken zofran one time dose tigan ordered fluids as tolerated continue to monitor
[2018-02-12] MEDS ORDERED: TRIMETHOBENZAMIDE HCL 200MG/2ML INJ IM ONE (17:30)
[2018-02-12] MEDS: MELATONIN 5 MG TABLETS PO PRN (22:13)
[2018-02-13] MEDS: chlordiazePOXIDE HCL 25 MG CAPSULE PO SCH ×3 (05:25→17:33)
[2018-02-13] MEDS: IBUPROFEN 400 MG TABLET (FP) PO PRN (05:31)
--- NOTE | 2018-02-13 10:11 | PN ---
Psychiatric Progress Note Vital Signs: Vital Signs Period Temp Pulse Resp BP Sys/Hernandez Pulse Ox Last 24 Hr 97.5 F-98.2 F 67-93 16-20 96-118/64-78 Date of Session: 02/13/18 Chief Complaint:: "I am depressed and i have anxiety." HPI: Pt. admitted to for alcohol dependence. ROS: s/p lap gasric by pass in 10/29/12 Current Medications: Active Medications Generic Name Dose Route Start Last Admin Trade Name Freq PRN Reason Stop Dose Admin Acetaminophen 650 mg 02/11/18 19:33 Tylenol - PO Q4H PRN FEVER Al Hydroxide/Mg Hydroxide 30 ml 02/11/18 19:33 Mylanta Oral Suspension - PO Q6H PRN DYSPEPSIA Chlordiazepoxide HCl 25 mg 02/12/18 23:00 02/13/18 05:25 Librium - PO 02/13/18 17:01 25 mg [id number] LICHA Administration Chlordiazepoxide HCl 15 mg 02/13/18 23:00 Librium - PO 02/14/18 17:01 [id number] LICHA Chlordiazepoxide HCl 25 mg 02/11/18 19:33 02/12/18 13:35 Librium - PO 02/14/18 19:32 25 mg Q4H PRN Administration WITHDRAWAL(CONT SUBST) Chlordiazepoxide HCl 10 mg 02/14/18 23:00 Librium - PO 02/15/18 17:01 [id number] LICHA Clonidine 0.1 mg 02/11/18 19:49 02/12/18 11:08 Catapres - PO 0.1 mg Q4H PRN Administration HYPERTENSION Eucalyptus/Menthol/Phenol/Sorbitol 1 each 02/11/18 19:33 Cepastat Lozenge - MM Q4H PRN SORE THROAT Guaifenesin 10 ml 02/11/18 19:33 Robitussin Dm - PO Q6H PRN COUGH Hydroxyzine Pamoate 50 mg 02/11/18 19:33 02/12/18 13:34 Vistaril - PO 50 mg Q4H PRN Administration AGITATION Ibuprofen 400 mg 02/11/18 19:33 02/13/18 05:31 Motrin - PO 400 mg Q6H PRN Administration PAIN LEVEL 4-6 Loperamide HCl 4 mg 02/11/18 19:33 Imodium - PO Q6H PRN DIARRHEA Magnesium Citrate 300 ml 02/11/18 19:33 Citroma - PO Q48H PRN CONSTIPATION Magnesium Hydroxide 30 ml 02/11/18 19:33 Milk Of Magnesia - PO DAILY PRN CONSTIPATION Melatonin 10 mg 02/12/18 09:15 02/12/18 22:13 Melatonin PO 10 mg HS PRN Administration INSOMNIA Nicotine 14 mg 02/12/18 10:00 02/12/18 11:08 Nicoderm Patch - TD 14 mg DAILY LICHA Administration Nicotine Polacrilex 2 mg 02/11/18 19:33 Nicorette Gum - BC Q2H PRN NICOTINE REPLACEMENT RX Potassium Chloride 20 meq 02/12/18 12:45 02/12/18 22:13 K-Dur - PO 20 meq BID LICHA Administration Multivit/Folic Acid/Iron 1 tab 02/12/18 10:00 02/12/18 11:08 Vitamins (Sjr) - PO 1 tab DAILY LICHA Administration Pseudoephedrine/Triprolidine 1 combo 02/11/18 19:33 Actifed - PO TID PRN NASAL CONGESTION Thiamine HCl 100 mg 02/11/18 22:00 02/12/18 22:13 Vitamin B1 - PO 100 mg HS LICHA Administration Thiamine HCl 100 mg 02/12/18 10:00 02/12/18 11:09 Vitamin B1 - PO 100 mg DAILY LICHA Administration Medication(s) Change(s): Will add Zoloft 50mg PO daily + trazodone 50mg qhs. Current Side Effect: No Lab tests ordered: No Lab tests reviewed: Yes Provider note:: Chart reviewed. Patient seen by principal technical writer yesterday morning. When spoken to yesterday, patient reported h/o accepting zoloft but stated it was not effective and no longer takes it. Today, patients narrative is different. She reports taking zoloft before admission to detox. Pharmacy claims reviewed and noted patient has been given prescriptions of paxil, mirtzapine, zoloft, trazodone, and vistaril in the past. Will order zoloft 50mg + trazodone 50mg qhs. Pt. encouraged to accept vistaril 50mg for anxiety. Ms. Burgos is also encouaged to utilize her coping mechanisms when her anxiety worsens. Pt. satisifed and receptive to feedback. Total face to face time:: 25 Mental Status Exam - Mental Status Exam Alert and Oriented to: Time, Place, Person Cognitive Function: Good Patient Appearance: Well Groomed Mood: Sad, Anxious, Euthymic Affect: Euthymic Patient Behavior: Appropriate, Cooperative Speech Pattern: Clear, Appropriate Voice Loudness: Normal Thought Process: Intact, Goal Oriented Thought Disorder: Not Present Hallucinations: Denies Suicidal Ideation: Denies Homicidal Ideation: Denies Insight/Judgement: Poor Sleep: Poorly Appetite: Fair Muscle strength/Tone: Normal Gait/Station: Normal Psychiatric Treatment Plan - Problem List (1) Alcohol dependence with withdrawal with complication Current Visit: Yes (2) Insomnia Current Visit: Yes (3) Alcohol-induced mood disorder Current Visit: Yes (4) MDD (major depressive disorder) Current Visit: Yes (5) Anxiety disorder Current Visit: Yes
[2018-02-13] MEDS: POTASSIUM CHLORIDE TABS 20 MEQ TABLET.ER (FP) PO SCH ×2 (10:25→22:23)
[2018-02-13] MEDS: NICOTINE 14 MG/24 HOURS TOPICAL PATCH TD SCH (10:25)
[2018-02-13] MEDS: hydrOXYzine PAMOATE 50 MG CAPSULE (FP) PO PRN ×3 (10:25→20:18)
[2018-02-13] MEDS: PRENATAL VITAMINS W/ FOLIC ACID TABLET (FP) PO SCH (10:25)
[2018-02-13] MEDS: cloNIDine HCL 0.1 MG TABLET PO PRN (10:25)
[2018-02-13] MEDS: THIAMINE HCL 100 MG TABLET (FP) PO SCH ×2 (10:27→22:23)
[2018-02-13] MEDS: SERTRALINE HCL 50 MG TABLET (FP) PO SCH (10:27)
--- NOTE | 2018-02-13 11:00 | PN ---
[facility] CIWA - CIWA Score Nausea/Vomitin-No Nausea/No Vomiting Muscle Tremors: None Anxiety: 0-No Anxiety, at Ease Agitation: 1-Slight > Activity Paroxysmal Sweats: No Perspiration Orientation: 0-Oriented Tacttile Disturbances: 0-None Auditory Disturbances: 0-None Visual Disturbances: 0-None Headache: 0-None Present CIWA-Ar Total Score: 1 BHS Progress Note (SOAP) Subjective: PATIENT NOTED PACING IN HALLWAY. S/O LBP DUE MENSTRAUL CYCLE. Objective: 02/13/18 10:58 Laboratory Tests 02/11/18 02/12/18 02/12/18 23:10 00:39 05:12 WBC RBC Hgb Hct MCV MCH MCHC RDW Plt Count MPV Sodium Potassium Chloride Carbon Dioxide Anion Gap BUN Creatinine Creat Clearance w eGFR POC Glucometer 113 100 Random Glucose Calcium Total Bilirubin AST ALT Alkaline Phosphatase Total Protein Albumin Urine Color Red Urine Appearance Turbid Urine pH 5.0 Ur Specific [place] 1.030 Urine Protein 2+ H Urine Glucose (UA) Negative Urine Ketones 1+ H Urine Blood 2+ H Urine Nitrite Negative Urine Bilirubin Negative Urine Urobilinogen Negative Ur Leukocyte Esterase Negative Urine WBC (Auto) 3346 Urine RBC (Auto) 861 Urine Mucus Rare RPR Titer 02/12/18 02/12/18 02/12/18 07:00 07:00 07:00 WBC 5.6 RBC 3.83 Hgb 12.6 Hct 37.9 MCV 99.2 H MCH 32.8 MCHC 33.1 RDW 13.7 Plt Count 169 MPV 9.0 Sodium 138 Potassium 3.3 L Chloride 102 Carbon Dioxide 29 Anion Gap 7 L BUN 13 Creatinine 0.5 L Creat Clearance w eGFR > 60 POC Glucometer Random Glucose 84 Calcium 8.5 Total Bilirubin 0.6 AST 58 H ALT 26 Alkaline Phosphatase 77 Total Protein 6.8 Albumin 3.3 L Urine Color Urine Appearance Urine pH Ur Specific [place] Urine Protein Urine Glucose (UA) Urine Ketones Urine Blood Urine Nitrite Urine Bilirubin Urine Urobilinogen Ur Leukocyte Esterase Urine WBC (Auto) Urine RBC (Auto) Urine Mucus RPR Titer Nonreactive 02/12/18 02/13/18 23:39 05:28 WBC RBC Hgb Hct MCV MCH MCHC RDW Plt Count MPV Sodium Potassium Chloride Carbon Dioxide Anion Gap BUN Creatinine Creat Clearance w eGFR POC Glucometer 101 104 Random Glucose Calcium Total Bilirubin AST ALT Alkaline Phosphatase Total Protein Albumin Urine Color Urine Appearance Urine pH Ur Specific [place] Urine Protein Urine Glucose (UA) Urine Ketones Urine Blood Urine Nitrite Urine Bilirubin Urine Urobilinogen Ur Leukocyte Esterase Urine WBC (Auto) Urine RBC (Auto) Urine Mucus RPR Titer Vital Signs Temperature 97.5 F L 02/13/18 09:15 Pulse Rate 67 02/13/18 09:15 Respiratory Rate 16 02/13/18 09:15 Blood Pressure 105/70 02/13/18 09:15 O2 Sat by Pulse Oximetry (%) PE: ALERT AND ORIENTED SKIN WARM AND DRY CAR S1S2 RESP CTAB MS + LOW BACK PAIN 02/13/18 10:59 Assessment: 02/13/18 10:59 HYPOKALEMIA ETOH WITHDRAWAL SYNDROME Plan: CONTINUE DETOX PER PROTOCOL LIDODERM PATCH ORDERED TODAY CONTINUE TO MONITOR CLINICALLY
[2018-02-13] MEDS: LIDOCAINE 5% TOPICAL PATCH TP SCH (11:18)
[2018-02-13] MEDS: chlordiazePOXIDE HCL 25 MG CAPSULE PO PRN ×2 (12:04→20:18)
[2018-02-13 17:36] LABS: URINE APPEARANCE CLOUDY; URINE BILIRUBIN NEGATIVE (<2.0 mg/dL); URINE COLOR RED; URINE GLUCOSE (UA) NEGATIVE (NEGATIVE); URINE KETONE NEGATIVE (NEGATIVE); URINE LEUK ESTERASE NEGATIVE (NEGATIVE); URINE NITRITE NEGATIVE (NEGATIVE); URINE UROBILINOGEN NEGATIVE mg/dL (0.2-1.0)
[2018-02-13 17:37] LABS: URINE PROTEIN 2+ (NEGATIVE)
[2018-02-13 17:54] LABS: URINE MUCUS MANY
[2018-02-13] MEDS: chlordiazePOXIDE 5 MG CAPSULE PO SCH (22:22)
[2018-02-13] MEDS: MELATONIN 5 MG TABLETS PO PRN (22:23)
[2018-02-13] MEDS: traZODone HCL 50 MG TABLET (FP) PO SCH (22:23)
[2018-02-13] MEDS: LIDOCAINE PATCH REMOVAL MC SCH (22:31)
[2018-02-14] MEDS: chlordiazePOXIDE 5 MG CAPSULE PO SCH ×3 (05:19→17:34)
[2018-02-14] MEDS: hydrOXYzine PAMOATE 50 MG CAPSULE (FP) PO PRN ×3 (08:51→21:20)
[2018-02-14] MEDS: SERTRALINE HCL 50 MG TABLET (FP) PO SCH (10:13)
[2018-02-14] MEDS: POTASSIUM CHLORIDE TABS 20 MEQ TABLET.ER (FP) PO SCH ×2 (10:13→22:14)
[2018-02-14] MEDS: PRENATAL VITAMINS W/ FOLIC ACID TABLET (FP) PO SCH (10:14)
[2018-02-14] MEDS: NICOTINE 14 MG/24 HOURS TOPICAL PATCH TD SCH (10:14)
[2018-02-14] MEDS: LIDOCAINE 5% TOPICAL PATCH TP SCH (10:14)
[2018-02-14] MEDS: THIAMINE HCL 100 MG TABLET (FP) PO SCH ×2 (10:15→22:14)
[2018-02-14] MEDS: IBUPROFEN 400 MG TABLET (FP) PO PRN ×2 (10:17→16:30)
--- NOTE | 2018-02-14 10:33 | PN ---
[facility] Progress Note (SOAP) Subjective: Back pain, anxiety, irritability, interrupted sleep Objective: 02/14/18 10:30 Vital Signs 02/14/18 02/14/18 02/14/18 03:30 06:00 09:56 Temperature 97.3 F L 97.7 F Pulse Rate 66 80 Respiratory 18 18 19 Rate Blood Pressure 96/57 L 118/62 Laboratory Last Values WBC 5.6 K/mm3 (4.0-10.0) 02/12/18 07:00 RBC 3.83 M/mm3 (3.60-5.2) 02/12/18 07:00 Hgb 12.6 GM/dL (10.7-15.3) 02/12/18 07:00 Hct 37.9 % (32.4-45.2) 02/12/18 07:00 MCV 99.2 fl (80-96) H 02/12/18 07:00 MCH 32.8 pg (25.7-33.7) 02/12/18 07:00 MCHC 33.1 g/dl (32.0-36.0) 02/12/18 07:00 RDW 13.7 % (11.6-15.6) 02/12/18 07:00 Plt Count 169 K/MM3 (134-434) 02/12/18 07:00 MPV 9.0 fl (7.5-11.1) 02/12/18 07:00 Sodium 138 mmol/L (136-145) 02/12/18 07:00 Potassium 3.3 mmol/L (3.5-5.1) L 02/12/18 07:00 Chloride 102 mmol/L (98-107) 02/12/18 07:00 Carbon Dioxide 29 mmol/L (21-32) 02/12/18 07:00 Anion Gap 7 MMOL/L (8-16) L 02/12/18 07:00 BUN 13 mg/dL (7-18) 02/12/18 07:00 Creatinine 0.5 mg/dL (0.55-1.3) L 02/12/18 07:00 Creat Clearance w eGFR > 60 (>60) 02/12/18 07:00 POC Glucometer 103 UNITS (80-120) 02/14/18 05:22 Random Glucose 84 mg/dL (74-106) 02/12/18 07:00 Calcium 8.5 mg/dL (8.5-10.1) 02/12/18 07:00 Total Bilirubin 0.6 mg/dL (0.2-1) 02/12/18 07:00 AST 58 U/L (15-37) H 02/12/18 07:00 ALT 26 U/L (13-61) 02/12/18 07:00 Alkaline Phosphatase 77 U/L (45-117) 02/12/18 07:00 Total Protein 6.8 g/dl (6.4-8.2) 02/12/18 07:00 Albumin 3.3 g/dl (3.4-5.0) L 02/12/18 07:00 Free T4 0.82 ng/dL (0.82-1.77) 02/12/18 07:00 Urine Color Red 02/13/18 13:20 Urine Appearance Cloudy 02/13/18 13:20 Urine pH 5.0 (5.0-8.0) 02/13/18 13:20 Ur Specific [place] 1.028 (1.001-1.035) 02/13/18 13:20 Urine Protein 2+ (NEGATIVE) H 02/13/18 13:20 Urine Glucose (UA) Negative (NEGATIVE) 02/13/18 13:20 Urine Ketones Negative (NEGATIVE) 02/13/18 13:20 Urine Blood 3+ (NEGATIVE) H 02/13/18 13:20 Urine Nitrite Negative (NEGATIVE) 02/13/18 13:20 Urine Bilirubin Negative (<2.0 mg/dL) 02/13/18 13:20 Urine Urobilinogen Negative mg/dL (0.2-1.0) 02/13/18 13:20 Ur Leukocyte Esterase Negative (NEGATIVE) 02/13/18 13:20 Urine WBC (Auto) 5 /hpf (3-5) 02/13/18 13:20 Urine RBC (Auto) 9135 /hpf (0-3) 02/13/18 13:20 Urine Mucus Many 02/13/18 13:20 RPR Titer Nonreactive (NONREACTIVE) 02/12/18 07:00 Labs noted, potassium repeated Assessment: 02/14/18 10:31 Withdrawal sx Hypokalemia Back pain Plan: Continue detox Continue potassium supplement, repeat level pending Pain patch to the affected areas in the back
[2018-02-14] MEDS: chlordiazePOXIDE HCL 25 MG CAPSULE PO PRN (13:53)
[2018-02-14] MEDS: LIDOCAINE PATCH REMOVAL MC SCH (22:14)
[2018-02-14] MEDS: chlordiazePOXIDE HCL 10 MG CAPSULE PO SCH (22:14)
[2018-02-14] MEDS: traZODone HCL 50 MG TABLET (FP) PO SCH (22:14)
[2018-02-14] MEDS: MELATONIN 5 MG TABLETS PO PRN (22:15)
[2018-02-14] MEDS: cloNIDine HCL 0.1 MG TABLET PO PRN (23:29)
[2018-02-15] MEDS: chlordiazePOXIDE HCL 10 MG CAPSULE PO SCH (06:55)
[2018-02-15 07:06] VITALS: BP 127/68
--- NOTE | 2018-02-15 08:41 | DS ---
[facility] Detox Discharge Summary Admission Date: 02/11/18 Discharge Date: 02/15/18 - History Present History: Alcohol Dependence Additional Comments: 37 years old female admitted on 02/11/18 for alcohol withdrawal sx completed alcohol detox regimen tolerated well denies alcohol withdrawal sx alert oriented x 3 no acute distress after[facility] - Physical Exam Results Vital Signs: Vital Signs Temperature 97.9 F 02/15/18 06:00 Pulse Rate 77 02/15/18 06:00 Respiratory Rate 18 02/15/18 06:00 Blood Pressure 127/68 02/15/18 06:00 O2 Sat by Pulse Oximetry (%) Pertinent Admission Physical Exam Findings: alcohol withdrawal sx Vital Signs Temperature 97.5 F L 02/15/18 09:36 Pulse Rate 18 L 02/15/18 09:36 Respiratory Rate 100 H 02/15/18 09:36 Blood Pressure 127/68 02/15/18 09:36 O2 Sat by Pulse Oximetry (%) Laboratory Last Values WBC 5.6 K/mm3 (4.0-10.0) 02/12/18 07:00 RBC 3.83 M/mm3 (3.60-5.2) 02/12/18 07:00 Hgb 12.6 GM/dL (10.7-15.3) 02/12/18 07:00 Hct 37.9 % (32.4-45.2) 02/12/18 07:00 MCV 99.2 fl (80-96) H 02/12/18 07:00 MCH 32.8 pg (25.7-33.7) 02/12/18 07:00 MCHC 33.1 g/dl (32.0-36.0) 02/12/18 07:00 RDW 13.7 % (11.6-15.6) 02/12/18 07:00 Plt Count 169 K/MM3 (134-434) 02/12/18 07:00 MPV 9.0 fl (7.5-11.1) 02/12/18 07:00 Sodium 138 mmol/L (136-145) 02/12/18 07:00 Potassium 4.3 mmol/L (3.5-5.1) 02/14/18 08:50 Chloride 102 mmol/L (98-107) 02/12/18 07:00 Carbon Dioxide 29 mmol/L (21-32) 02/12/18 07:00 Anion Gap 7 MMOL/L (8-16) L 02/12/18 07:00 BUN 13 mg/dL (7-18) 02/12/18 07:00 Creatinine 0.5 mg/dL (0.55-1.3) L 02/12/18 07:00 Creat Clearance w eGFR > 60 (>60) 02/12/18 07:00 POC Glucometer 110 UNITS (80-120) 02/15/18 06:39 Random Glucose 84 mg/dL (74-106) 02/12/18 07:00 Calcium 8.5 mg/dL (8.5-10.1) 02/12/18 07:00 Total Bilirubin 0.6 mg/dL (0.2-1) 02/12/18 07:00 AST 58 U/L (15-37) H 02/12/18 07:00 ALT 26 U/L (13-61) 02/12/18 07:00 Alkaline Phosphatase 77 U/L (45-117) 02/12/18 07:00 Total Protein 6.8 g/dl (6.4-8.2) 02/12/18 07:00 Albumin 3.3 g/dl (3.4-5.0) L 02/12/18 07:00 Free T4 [place] 0.82 ng/dL (0.82-1.77) 02/12/18 07:00 Urine Color Red 02/13/18 13:20 Urine Appearance Cloudy 02/13/18 13:20 Urine pH 5.0 (5.0-8.0) 02/13/18 13:20 Ur Specific [place] 1.028 (1.001-1.035) 02/13/18 13:20 Urine Protein 2+ (NEGATIVE) H 02/13/18 13:20 Urine Glucose (UA) Negative (NEGATIVE) 02/13/18 13:20 Urine Ketones Negative (NEGATIVE) 02/13/18 13:20 Urine Blood 3+ (NEGATIVE) H 02/13/18 13:20 Urine Nitrite Negative (NEGATIVE) 02/13/18 13:20 Urine Bilirubin Negative (<2.0 mg/dL) 02/13/18 13:20 Urine Urobilinogen Negative mg/dL (0.2-1.0) 02/13/18 13:20 Ur Leukocyte Esterase Negative (NEGATIVE) 02/13/18 13:20 Urine WBC (Auto) 5 /hpf (3-5) 02/13/18 13:20 Urine RBC (Auto) 9135 /hpf (0-3) 02/13/18 13:20 Urine Mucus Many 02/13/18 13:20 RPR Titer Nonreactive (NONREACTIVE) 02/12/18 07:00 lab noted - Treatment Hospital Course: Detox Protocol Followed, Detoxed Safely, Responded well, Discharged Condition Good, Rehab Referral Accepted Patient has Accepted a Rehab Referral to: [facility] - Medication Discharge Medications: Ambulatory Orders Folic Acid - 1 mg PO DAILY 02/11/18 Multivitamins [Multivit ([facility] Formulary)] 1 tab PO DAILY 02/11/18 Sertraline HCl [Zoloft -] 100 mg PO DAILY 02/11/18 Thiamine HCl [Vitamin B1 -] 100 mg PO DAILY 02/11/18 traMADol HCL [Ultram -] 50 mg PO Q6H PRN 02/11/18 - Diagnosis (1) Alcohol dependence with withdrawal with complication Status: Acute (2) Tachycardia Status: Chronic (3) HTN (hypertension) Status: Chronic Qualifiers: Hypertension type: essential hypertension Qualified Code(s): I10 - Essential (primary) hypertension (4) Nicotine dependence Status: Acute Qualifiers: Nicotine product type: cigarettes Substance use status: in withdrawal Qualified Code(s): F17.213 - Nicotine dependence, cigarettes, with withdrawal - AMA Did Patient Leave Against Medical Advice: No
[2018-02-15] MEDS: SERTRALINE HCL 50 MG TABLET (FP) PO SCH (09:12)
[2018-02-15] MEDS: PRENATAL VITAMINS W/ FOLIC ACID TABLET (FP) PO SCH (09:12)
[2018-02-15] MEDS: NICOTINE 14 MG/24 HOURS TOPICAL PATCH TD SCH (09:12)
[2018-02-15] MEDS: LIDOCAINE 5% TOPICAL PATCH TP SCH (09:12)
[2018-02-15] MEDS: POTASSIUM CHLORIDE TABS 20 MEQ TABLET.ER (FP) PO SCH (09:12)
[2018-02-15 09:36] VITALS: PULSE 18; TEMP 97.5
== END 2018-02-15 10:03 | disposition home or self-care (01) | DRG 775 ==
LOC: YASAS 13:38 → Y6N 18:11
PROC: HZ2ZZZZ Detoxification Services for Substance Abuse Treatment (ICD-10-PCS; principal; 2018-02-11)
DX: F10.230 Alcohol dependence with withdrawal, uncomplicated (principal); F17.213 Nicotine dependence, cigarettes, with withdrawal; F41.9 Anxiety disorder, unspecified; F33.9 Major depressive disorder, recurrent, unspecified; F10.24 Alcohol dependence with alcohol-induced mood disorder; E87.6 Hypokalemia; E16.2 Hypoglycemia, unspecified; G47.00 Insomnia, unspecified; I10 Essential (primary) hypertension; M54.5 Low back pain; R00.0 Tachycardia, unspecified; Z98.84 Bariatric surgery status
CPT/HCPCS: 36415; 80053; 81003; 81015; 82962; 84132; 84439; 85027; 86593; 93005; 93010; J0735; Q0162

== ENCOUNTER 2019-03-25 16:21 | Inpatient (IN) | payer OTHER ==
[2019-03-25 16:46] VITALS: BMI 25.7
--- NOTE | 2019-03-25 17:46 | PDOC ---
History of Present Illness - General Chief Complaint: Injury Stated Complaint: Injury Time Seen by Provider: 03/25/19 17:12 - History of Present Illness Initial Comments: 03/25/19 19:16 38 yo F with a hx of ETOH abuse (last drink 11 pm 03/24/2019) presents to the emergency department from [facility] for headache, left shoulder pain, and tremors. Per the patient, she has had multiple falls in the past week and states she "blacked out" yesterday. She presented to [facility] and was told her "left shoulder was messed up" but is unsure if there are fractures or dislocations. The patient states she has a global headache without visual loss. Denies vomiting but endorses nausea. The patient endorses having tremors. Denies the following: fever, chills, SOB, chest pain, dysuria, hematuria, diarrhea, hematochezia, and leg pain/swelling. Has pain in her right knee, left hip, and lower back. PE: bruise noted in the ventral portion of the left distal wrist, bruise on the ventral portion of the left elbow. Tenderness to palpation in the left shoulder. No obvious deformity noted in the left shoulder. No step offs appreciated on the left clavicle. tenderness to palpation in the left paraspinal area in the lumbar area. Able to ROM her hips bilaterally. right knee has a bruise on the tibial tuberosity. Tremors positive in the right hand with fasiculations noted in the tongue. respiratory, cardiac, and abdomen within normal limits MDM: Patient presents with suspected syncope with head trauma. based on PE, unlikely to have a fracture in the right knee, left wrist, and left elbow. the patient does have tenderness in the left shoulder. will obtain a head ct, cervicla spine CT, left shoudlewr xray, cxr. will obtain labs for syncope work up. given 2 mg pof ativan and 50 mg of librium. Past History - Past Medical History Allergies/Adverse Reactions: Allergies Allergy/AdvReac Type Severity Reaction Status Date / Time No Known Allergies Allergy Verified 03/25/19 12:49 Home Medications: Ambulatory Orders Folic Acid - 1 mg PO DAILY 02/11/18 Multivitamins [Multivit ([facility] Formulary)] 1 tab PO DAILY 02/11/18 Thiamine HCl [Vitamin B1 -] 100 mg PO DAILY 02/11/18 Acetaminophen [Tylenol] 500 mg PO PRN PRN 03/25/19 Citalopram Hydrobromide [Celexa -] 10 mg PO DAILY 03/25/19 Cyanocobalamin (Vitamin B-12) [B-12] 1,000 mcg PO DAILY 03/25/19 Diphenhydramine HCl [Benadryl -] 25 mg PO HS 03/25/19 Famotidine [Pepcid] 40 mg PO DAILY 03/25/19 Lidocaine 5% Patch [Lidoderm Patch -] 1 patch TP DAILY 03/25/19 Naproxen [Naprosyn] 500 mg PO BID 03/25/19 Nicotine [Nicotine Patch 21 mg/24 hr] 1 each TD DAILY 03/25/19 Tramadol HCl [Ultram] 50 mg PO PRN PRN 03/25/19 Anemia: No Asthma: No Cancer: No Cardiac Disorders: No CVA: No COPD: No CHF: No Dementia: No Diabetes: No GI Disorders: No Disorders: No HTN: Yes Hypercholesterolemia: No Kidney Stones: No Liver Disease: No Seizures: No Thyroid Disease: No - Surgical History Abdominal Surgery: Yes (s/p lap gasric by pass in 10/29/12) Appendectomy: No Cardiac Surgery: No Cholecystectomy: No Lung Surgery: No Neurologic Surgery: No Orthopedic Surgery: No - Reproductive History PID: No - Psycho Social/Smoking Cessation Hx Smoking History: Former smoker Have you smoked in the past 12 months: Yes Number of Cigarettes Smoked Daily: 12 (Has decreased from 1 PPD) Information on smoking cessation initiated: No 'Breaking Loose' booklet given: 03/25/19 Hx Alcohol Use: Yes Drug/Substance Use Hx: Yes Substance Use Type: Alcohol Hx Substance Use Treatment: Yes (detox ) *Physical Exam - Vital Signs Last Vital Signs Temp Pulse Resp BP Pulse Ox 98.0 F 78 20 127/72 98 03/25/19 16:44 03/25/19 16:44 03/25/19 16:44 03/25/19 16:44 03/25/19 16:44
[2019-03-25] MEDS ORDERED: SODIUM CHLORIDE 1,000 ML IV STA (18:04)
[2019-03-25] MEDS ORDERED: ACETAMINOPHEN 1000 MG/100 ML VIAL (NON FORMULARY) IVPB ONE (18:04)
[2019-03-25] MEDS ORDERED: chlordiazePOXIDE HCL 25 MG CAPSULE PO ONE ×2 (18:04→23:31)
--- NOTE | 2019-03-25 18:23 | PDOC ---
Attending Attestation - Resident Resident Name: HarryJet - ED Attending Attestation I have performed the following: I have examined & evaluated the patient, The case was reviewed & discussed with the resident, I agree w/resident's findings & plan, Exceptions are as noted - HPI HPI: 03/25/19 18:19 38 F with h/o ETOH abuse, admitted to [facility] for detox, presenting to ED for evaluation of headache and L shoulder pain. Pt reports that she was intoxicated 2 days ago and fell. Pt was evaluated at [facility] yesterday and had imaging that revealed a L clavicle fx and pt was discharged. At [facility], pt reported severe pain, prompting them to send her back to the ER. Pt denies any additional falls. Endorses tremors and feels like she is withdrawing from ETOH. No seizure history, no h/o DTs. - Physicial Exam PE: 03/25/19 18:20 Agree w/ resident exam - Medical Decision Making 03/25/19 18:21 38 F with headache and body pain after falling two days ago, evaluated at [facility], sent to ED from [facility] for pain control. Pt is also actively withdrawing from ETOH. - CT head/c-spine - XRs - Labs - Ativan/librium
[2019-03-25] MEDS ORDERED: chlordiazePOXIDE HCL 25 MG CAPSULE ONE (18:38)
[2019-03-25] MEDS ORDERED: ACETAMINOPHEN INJECTION 100 ML IVPB ONE (18:38)
[2019-03-25] MEDS ORDERED: LORazepam 2 MG/ML SDV VIAL ONE (18:38)
--- NOTE | 2019-03-25 19:21 | PDOC ---
*Physical Exam - Vital Signs Last Vital Signs Temp Pulse Resp BP Pulse Ox 98.0 F 78 20 127/72 98 03/25/19 16:44 03/25/19 16:44 03/25/19 16:44 03/25/19 16:44 03/25/19 16:44 ED Treatment Course - LABORATORY CBC & Chemistry Diagram: 03/26/19 05:36 03/26/19 05:36 - Medications Given in the ED: ED Medications Discontinued Medications Generic Name Dose Route Start Last Admin Trade Name Kimi PRN Reason Stop Dose Admin Acetaminophen 1,000 mg 03/25/19 18:04 03/25/19 19:08 Ofirmev Injection - IVPB 03/25/19 18:05 1,000 mg ONCE ONE Administration Chlordiazepoxide HCl 50 mg 03/25/19 18:04 03/25/19 19:07 Librium - PO 03/25/19 18:05 50 mg ONCE ONE Administration Sodium Chloride 1,000 mls @ 1,000 mls/hr 03/25/19 18:04 03/25/19 19:07 Normal Saline - IV 03/25/19 19:03 1,000 mls/hr ASDIR STA Administration Lorazepam 2 mg 03/25/19 18:04 03/25/19 19:07 Ativan Injection - IVPUSH 03/25/19 18:05 2 mg ONCE ONE Administration Medical Decision Making - Medical Decision Making Pt signed out to e by Dr. Mcdonald, see prior note. 38 year old female with PMH ETOH abuse sent to ED from [facility] for syncopal episode occurring yesterday. It was reported pt was seen at [facility], but unsure of exact workup/treatment. She reported she was told she had "shoulder issues" but no dislocation or fracture. Pt had tenderness to the left clavicle, left shoulder. Pt was c/o left sided neck pain, left sided headache. Her left upper arm has multiple bruises, she reported it was from the fall but also since she had to be stuck so many times at [facility]. Initial Vital Signs Temp Pulse Resp BP Pulse Ox 98.0 F 78 20 127/72 98 03/25/19 16:44 03/25/19 16:44 03/25/19 16:44 03/25/19 16:44 03/25/19 16:44 Afebrile. No tachycardia. No tachypnea. Normal BP. No hypoxia on room air. 03/25/19 19:51 CBC WBC 3.8 K/mm3 (4.0-10.0) L 03/25/19 19:00 RBC 3.77 M/mm3 (3.60-5.2) 03/25/19 19:00 Hgb 11.7 GM/dL (10.7-15.3) 03/25/19 19:00 Hct 35.1 % (32.4-45.2) 03/25/19 19:00 MCV 93.2 fl (80-96) 03/25/19 19:00 MCH 31.1 pg (25.7-33.7) 03/25/19 19:00 MCHC 33.3 g/dl (32.0-36.0) 03/25/19 19:00 RDW 21.2 % (11.6-15.6) H 03/25/19 19:00 Plt Count 131 K/MM3 (134-434) L D 03/25/19 19:00 MPV 9.2 fl (7.5-11.1) 03/25/19 19:00 Absolute Neuts (auto) 2.7 K/mm3 (1.5-8.0) 03/25/19 19:00 Neutrophils % 69.7 % (42.8-82.8) 03/25/19 19:00 Lymphocytes % 21.3 % (8-40) 03/25/19 19:00 Monocytes % 7.6 % (3.8-10.2) 03/25/19 19: Eosinophils % 0.6 % (0-4.5) 03/25/19 19:00 Basophils % 0.8 % (0-2.0) 03/25/19 19:00 Nucleated RBC % 0 % (0-0) 03/25/19 19:00 03/25/19 20:25 CMP Sodium 138 mmol/L (136-145) 03/25/19 19:00 Potassium 3.7 mmol/L (3.5-5.1) 03/25/19 19:00 Chloride 102 mmol/L (98-107) 03/25/19 19:00 Carbon Dioxide 27 mmol/L (21-32) 03/25/19 19:00 Anion Gap 8 MMOL/L (8-16) 03/25/19 19:00 BUN 3.5 mg/dL (7-18) L 03/25/19 19:00 Creatinine 0.5 mg/dL (0.55-1.3) L 03/25/19 19:00 Est GFR (CKD-EPI)AfAm 141.30 03/25/19 19:00 Est GFR (CKD-EPI)NonAf 121.92 03/25/19 19:00 Random Glucose 83 mg/dL (74-106) 03/25/19 19:00 Calcium 8.5 mg/dL (8.5-10.1) 03/25/19 19:00 Total Bilirubin 0.7 mg/dL (0.2-1) 03/25/19 19:00 AST 269 U/L (15-37) H 03/25/19 19:00 ALT 116 U/L (13-61) H 03/25/19 19:00 Alkaline Phosphatase 118 U/L (45-117) H 03/25/19 19:00 Creatine Kinase 127 U/L (26-192) 03/25/19 19:00 Troponin I < 0.02 ng/ml (0.00-0.05) 03/25/19 19:00 Total Protein 6.8 g/dl (6.4-8.2) 03/25/19 19:00 Albumin 3.4 g/dl (3.4-5.0) 03/25/19 19:00 Lipase 101 U/L (73-393) 03/25/19 19:00 TSH 2.23 uIU/ml (0.358-3.74) 03/25/19 19:00 Serum , Qual Negative 03/25/19 19:00 Transaminitis. Normal total bili. Troponin undetectable. Lipase wnl. TSH wnl. Serum testing negative. No CRISTOBAL. Serum ETOH level negative. Pt denied abdominal pain. Pt reported no improvement of shoulder pain. Medications ordered: Toradol 30 mg IV once 03/25/19 23:09 CT head report: Name: RADHA CHRISTOPHER DEPARTMENT OF RADIOLOGY Phys: Jet Mcdonald RESIDENT : 1980 Age: 38 Sex: F [employer] Acct: [id number] Loc: [address] Exam Date: 03/25/19 Status: [place] [address] Unit Number: [id number] EXAM#: TYPE/EXAM: RESULT: [id number] CT/HEAD CT WITHOUT CONTRAST Cranial CT without contrast Clinical information: trauma No CT evidence of intracranial injury or calvarial fracture. There is no extra-axial fluid collection. No obvious infarct or mass lesion is noted. There is no definite abnormal attenuation. Involutional changes are seen which may be mildly more prominent than would be expected for the patient's chronologic age. Correlate clinically. The ventricles and cisterns appear unremarkable. Impression: No CT evidence of acute intracranial pathology. Reported By: Darek Vaca MD [id number] CT cervical spine: Name: RADHA CHRISTOPHER DEPARTMENT OF RADIOLOGY Phys: Jet Mcdonald RESIDENT : 1980 Age: 38 Sex: F [employer] Acct: [id number] Loc: [address] Exam Date: 03/25/19 Status: [place] [id number] Unit Number: [id number] EXAM#: TYPE/EXAM: RESULT: [id number] CT/CERVICAL SPINE CT W/O CONTR Cervical spine CT without contrast Clinical information: trauma Multiplanar imaging was performed. No fracture or posttraumatic malalignment is identified. The perivertebral soft tissues demonstrate no obvious pathology. Impression: No fracture is seen. Reported By: Darek Vaca MD 03/25/19 2256 Pt to be admitted for syncope / ETOH withdrawal. 03/25/19 23:40 Pt tremulous. Medications ordered: Ativan 2 mg IV once Pt to be admitted under Dr. Galeano's care. Discharge - Discharge Information Problems reviewed: Yes Clinical Impression/Diagnosis: Transaminitis, ETOH abuse, Shoulder pain, Syncope - Admission Yes - Follow up/Referral - Patient Discharge Instructions - Post Discharge Activity
[2019-03-25 19:32] LABS: BASO % 0.8 % (0-2.0); EOS % 0.6 % (0-4.5); HEMATOCRIT 35.1 % (32.4-45.2); HEMOGLOBIN 11.7 GM/dL (10.7-15.3); LYMPH % 21.3 % (8-40); MCH 31.1 pg (25.7-33.7); MCHC 33.3 g/dl (32.0-36.0); MEAN CELL VOLUME 93.2 fl (80-96); MEAN PLT VOLUME 9.2 fl (7.5-11.1); MONO % 7.6 % (3.8-10.2); NEUT % 69.7 % (42.8-82.8); PLATELET COUNT 131 K/MM3 (134-434); RBC 3.77 M/mm3 (3.60-5.2); RDW 21.2 % (11.6-15.6); WHITE BLOOD COUNT 3.8 K/mm3 (4.0-10.0)
[2019-03-25 19:55] LABS: ALBUMIN 3.4 g/dl (3.4-5.0); ALK PHOS 118 U/L (45-117); ANION GAP 8 MMOL/L (8-16); BILIRUBIN,TOTAL 0.7 mg/dL (0.2-1); BLOOD UREA NITROGEN 3.5 mg/dL (7-18); CALCIUM 8.5 mg/dL (8.5-10.1); CHLORIDE 102 mmol/L (98-107); CO2 27 mmol/L (21-32); CREATININE 0.5 mg/dL (0.55-1.3); GLUCOSE,RANDOM 83 mg/dL (74-106); POTASSIUM 3.7 mmol/L (3.5-5.1); SGOT/AST 269 U/L (15-37); SGPT/ALT 116 U/L (13-61); SODIUM 138 mmol/L (136-145); TOT PROT 6.8 g/dl (6.4-8.2)
[2019-03-25 20:13] LABS: LIPASE 101 U/L (73-393)
[2019-03-25 21:01] LABS: ANISOCYTOSIS 1+; MACROCYTOSIS 0; PLATELET ESTIMATE DECREASED; TARGET CELLS 1+
[2019-03-25] MEDS ORDERED: FOLIC ACID INJECTION - 1 MG, THIAMINE HCL 100 MG, MULTIVIT INJECTION ADULT 10 ML in SOD... IVPB ONE (21:06)
[2019-03-25] MEDS ORDERED: KETOROLAC TROMETHAMINE 30 MG/1 ML VIAL IVPUSH ONE (21:09)
[2019-03-25] MEDS ORDERED: KETOROLAC TROMETHAMINE 30 MG/1 ML VIAL ONE (22:57)
--- NOTE | 2019-03-25 23:34 | PN ---
Teaching Attending Note Name of Resident: Erlinda Choi ATTENDING PHYSICIAN STATEMENT I saw and evaluated the patient. I reviewed the resident's note and discussed the case with the resident. I agree with the resident's findings and plan as documented. SUBJECTIVE: 38-year-old woman with history of EtOH abuse was sent in from [facility] complaining of headache left shoulder pain and tremors. History of multiple falls and as per chart patient had episode of syncope 1 day ago. Was seen in [facility] for her shoulder pain. Patient has been falling due to EtOH intoxication.She reports that she drinks 1 L of liquor a day with sometimes 2 bottles of wine. OBJECTIVE: Last Vital Signs Temp Pulse Resp BP Pulse Ox 98.0 F 80 17 128/97 99 03/25/19 16:44 03/25/19 21:00 03/25/19 21:00 03/25/19 21:00 03/25/19 21:00 GENERAL: Well developed, well nourished. Awake and alert. No acute distress. HEENT: Normocephalic, atraumatic. PERRLA, EOMI. No conjunctival pallor. Sclera are non- icteric. Moist mucous membranes. Oropharynx is clear. NECK: Supple. Full ROM. No JVD. Carotid pulses 2+ and symmetric, without bruits. No thyromegaly. No lymphadenopathy. CARDIOVASCULAR: Regular rate and rhythm. No murmurs, rubs, or gallops. Distal pulses are 2+ and symmetric. PULMONARY: No evidence of respiratory distress. Lungs clear to auscultation bilaterally. No wheezing, rales or rhonchi. ABDOMINAL: Soft. Non-tender. Non-distended. No rebound or guarding. No organomegaly. Normoactive bowel sounds. MUSCULOSKELETAL Normal range of motion at all joints. No bony deformities or tenderness. No CVA tenderness. EXTREMITIES: Tremulous, No cyanosis or clubbing appreciated SKIN: Warm and dry. Normal capillary refill. No rashes. No jaundice. PSYCHIATRIC: Cooperative. Good eye contact. Appropriate mood and affect. Abnormal Lab Results 03/25/19 03/25/19 19:00 19:00 WBC 3.8 L RDW 21.2 H Plt Count 131 L D BUN 3.5 L Creatinine 0.5 L AST 269 H ALT 116 H Alkaline Phosphatase 118 H Imaging reviewed Shoulder x-ray appeared to be normal but would follow-up official report ASSESSMENT AND PLAN: 38-year-old woman alcoholic with history of falls and syncope episode. Transaminitis may be secondary to EtOH abuse. Should rule out cholestatic causes. Leukopenia may be from EtOH abuse. HIV should be ruled out. Admit to telemetry for syncope episode and EtOH withdrawal Check orthostatics Transthoracic echo Liver sonogram Urine toxicology screen Bedrest and fall precautions PT evaluation CIWA protocol EtOH detox protocol with lorazepam Monitor hepatic panel Viral hepatitis panel Thiamine Folate Multivitamin IV fluid hydration DVT prophylaxis
[2019-03-26] MEDS ORDERED: LORazepam 2 MG/ML SDV VIAL ONE ×2 (01:22→02:36)
[2019-03-26] MEDS ORDERED: LORazepam 2 MG/ML SDV VIAL IVPUSH ONE (01:45)
[2019-03-26] MEDS ORDERED: FOLIC ACID INJECTION - 1 MG, THIAMINE HCL 100 MG, MULTIVIT INJECTION ADULT 10 ML in SOD... IVPB ONE (05:15)
[2019-03-26] MEDS ORDERED: LORazepam 0.5 MG TABLET ONE ×2 (05:26→11:22)
[2019-03-26] MEDS: LORazepam 2 MG TABLET PO SCH ×3 (05:31→18:19)
--- NOTE | 2019-03-26 05:42 | HP ---
CHIEF COMPLAINT: shoulder and neck pain and shaking PCP: Dr Lomax from [place] ( unknown) HISTORY OF PRESENT ILLNESS: 31 y/o female w/ ETOH abuse sent from [facility] for evaluation of headache and left shoulder pain . The patient states she was intoxicated 2 days ago after drinking a bottle of vodka and blacked out and fell as a result. According to the Pt, she went to [facility] yesterday for shoulder pain and found to have a clavicular fracture. At [facility] the patient reported severe vaz in the neck and shoulder . Denies additional falls, head trauma at that time. Pt endorses tremors, headache and inner restlessness. She denied any associated N/V, diaphoresis to syncope. She has not had any drinks for since 2 days ago ER course was notable for: (1) CBC with leukopenia 3.8. CMP AST 269 ALT 116 (2) CT head/ c-spine neg,XR shoulder neg (3)Ativan/Librium Recent Travel: none PAST MEDICAL HISTORY: as above and RA anemia PAST SURGICAL HISTORY: C section, breast reduction, arm lifts FAMILY History: father DM HTN stroke Mother hypothyroidism w/ stomach va Social History: Smokin cig daily for 16 yrs Alcohol:2 bottles of wine or 1 bottle of vodka a day for 16 years Drugs: denies Allergies No Known Allergies Allergy (Verified 03/25/19 12:49) HOME MEDICATIONS: Home Medications Medication Instructions Recorded Folic Acid - 1 mg PO DAILY 02/11/18 Multivitamins [Multivit ([facility] 1 tab PO DAILY 02/11/18 Formulary)] Thiamine HCl [Vitamin B1 -] 100 mg PO DAILY 02/11/18 Acetaminophen [Tylenol] 500 mg PO PRN PRN 03/25/19 Citalopram Hydrobromide [Celexa -] 10 mg PO DAILY 03/25/19 Cyanocobalamin (Vitamin B-12) 1,000 mcg PO DAILY 03/25/19 [B-12] Diphenhydramine HCl [Benadryl -] 25 mg PO HS 03/25/19 Famotidine [Pepcid] 40 mg PO DAILY 03/25/19 Lidocaine 5% Patch [Lidoderm Patch 1 patch TP DAILY 03/25/19 -] Naproxen [Naprosyn] 500 mg PO BID 03/25/19 Nicotine [Nicotine Patch 21 mg/24 1 each TD DAILY 03/25/19 hr] Tramadol HCl [Ultram] 50 mg PO PRN PRN 03/25/19 REVIEW OF SYSTEMS CONSTITUTIONAL: malaise Absent: fever, chills, diaphoresis, generalized weakness, loss of appetite, weight change HEENT: Absent: rhinorrhea, nasal congestion, throat pain, throat swelling, difficulty swallowing, mouth swelling, ear pain, eye pain, visual changes CARDIOVASCULAR: Absent: chest pain, syncope, palpitations, irregular heart rate, lightheadedness , peripheral edema RESPIRATORY: Absent: cough, shortness of breath, dyspnea with exertion, orthopnea, wheezing, stridor, hemoptysis GASTROINTESTINAL: Absent: abdominal pain, abdominal distension, nausea, vomiting, diarrhea, constipation, melena, hematochezia GENITOURINARY: Absent: dysuria, frequency, urgency, hesitancy, hematuria, flank pain, genital pain MUSCULOSKELETAL: Absent: myalgia, arthralgia, joint swelling, back pain, neck pain SKIN: Absent: rash, itching, pallor HEMATOLOGIC/IMMUNOLOGIC: Absent: easy bleeding, easy bruising, lymphadenopathy, frequent infections ENDOCRINE: Absent: unexplained weight gain, unexplained weight loss, heat intolerance, cold intolerance NEUROLOGIC: Absent: headache, focal weakness or paresthesias, dizziness, unsteady gait, seizure, mental status changes, bladder or bowel incontinence PSYCHIATRIC: Absent: anxiety, depression, suicidal or homicidal ideation, hallucinations. PHYSICAL EXAMINATION Vital Signs - 24 hr 03/25/19 03/25/19 16:44 21:00 Temperature 98.0 F Pulse Rate 78 Pulse Rate [ 80 Left] Respiratory 20 17 Rate Blood Pressure 127/72 Blood Pressure 128/97 [Right Arm] O2 Sat by Pulse 98 99 Oximetry (%) GENERAL: Awake, alert, and fully oriented, in mod distress, tremulous, diffuse itching, and restlessness HEAD: Normal with no signs of trauma. EYES: Pupils equal, round and reactive to light, extraocular movements intact, sclera anicteric, conjunctiva clear. No lid lag. EARS, NOSE, THROAT: oropharynx clear without exudates. Moist mucous membranes. NECK: Normal range of motion, supple without lymphadenopathy, JVD, or masses. LUNGS: Breath sounds equal, clear to auscultation bilaterally. No wheezes, and no crackles. No accessory muscle use. HEART: tachycardic Regular rate and rhythm, normal S1 and S2 without murmur, rub or gallop. ABDOMEN: Soft, nontender, not distended, normoactive bowel sounds, no guarding, no rebound, no masses. No hepatomegaly or splenomegaly. MUSCULOSKELETAL: Normal range of motion at all joints. No bony deformities or tenderness. No CVA tenderness. UPPER EXTREMITIES: 2+ pulses, warm, well-perfused. No cyanosis. No clubbing. No peripheral edema but bruising in both previous IV site access LOWER EXTREMITIES: 2+ pulses, warm, well-perfused. No calf tenderness. No peripheral edema. NEUROLOGICAL: Cranial nerves II-XII intact. tongue fasciculation. b/l tremors in hands and feet PSYCHIATRIC: Cooperative. Good eye contact. but anxious and restless Laboratory Results - last 24 hr 03/25/19 03/25/19 03/25/19 19:00 19:00 19:00 WBC 3.8 L RBC 3.77 Hgb 11.7 Hct 35.1 MCV 93.2 MCH 31.1 MCHC 33.3 RDW 21.2 H Plt Count 131 L D MPV 9.2 Absolute Neuts (auto) 2.7 Neutrophils % 69.7 Lymphocytes % 21.3 Monocytes % 7.6 Eosinophils % 0.6 Basophils % 0.8 Nucleated RBC % 0 Hypochromia 1+ Platelet Estimate Decreased Polychromasia 0 Poikilocytosis 1+ Anisocytosis 1+ Microcytosis 1+ Macrocytosis 0 Target Cells 1+ Stomatocytes 1+ Schistocytes 1+ Sodium 138 Potassium 3.7 Chloride 102 Carbon Dioxide 27 Anion Gap 8 BUN 3.5 L Creatinine 0.5 L Est GFR (CKD-EPI)AfAm 141.30 Est GFR (CKD-EPI)NonAf 121.92 Random Glucose 83 Calcium 8.5 Total Bilirubin 0.7 AST 269 H ALT 116 H Alkaline Phosphatase 118 H Creatine Kinase 127 Troponin I < 0.02 Total Protein 6.8 Albumin 3.4 Lipase 101 TSH 2.23 Serum , Qual Negative Alcohol, Quantitative < 3.0 ASSESSMENT/PLAN: 31 y/o female w/ ETOH abuse sent from [facility] for evaluation of headache and left shoulder pain. admitted for alcohol withdrawal and shoulder pain. Syncope most likely due to alcohol intoxication echo ordered orthostatic vital signs IVFs Acute Alcohol withdrawal 2/2 sudden cessation of alcohol anxiety, tremors, tachycardia, restless CIWA 17 Ativan protocol banana bag @125 supplemental thiamine, folate, MTV Utox fall precautions and bedrest PT head of bed elevation for aspiration precaution Elevated LFTs RUQ US for liver assessment hepatitis panel Pancytopenia most likely due to alcoholism r/o other causes consider getting consent for HIV f/u hepatitis panel as well DVT SCDs hep subQ Visit type - Emergency Visit Emergency Visit: Yes ED Registration Date: 03/26/19 Care time: The patient presented to the Emergency Department on the above date and was hospitalized for further evaluation of their emergent condition. - New Patient This patient is new to me today: Yes Date on this admission: 03/26/19 - Critical Care Critical Care patient: No ATTENDING PHYSICIAN STATEMENT I saw and evaluated the patient. I reviewed the resident's note and discussed the case with the resident. I agree with the resident's findings and plan as documented. SUBJECTIVE: OBJECTIVE: ASSESSMENT AND PLAN:
[2019-03-26 05:53] LABS: BASO % 0.2 % (0-2.0); EOS % 2.1 % (0-4.5); HEMATOCRIT 34.8 % (32.4-45.2); HEMOGLOBIN 11.3 GM/dL (10.7-15.3); LYMPH % 32.5 % (8-40); MCH 30.3 pg (25.7-33.7); MCHC 32.5 g/dl (32.0-36.0); MEAN CELL VOLUME 93.1 fl (80-96); MONO % 10.2 % (3.8-10.2); PLATELET COUNT 114 K/MM3 (134-434); RBC 3.74 M/mm3 (3.60-5.2); WHITE BLOOD COUNT 3.1 K/mm3 (4.0-10.0)
[2019-03-26 06:29] LABS: BILIRUBIN,TOTAL 0.8 mg/dL (0.2-1); BLOOD UREA NITROGEN 3.2 mg/dL (7-18); CALCIUM 8.2 mg/dL (8.5-10.1); CREATININE 0.6 mg/dL (0.55-1.3); MAGNESIUM 1.5 mg/dL (1.8-2.4); PHOSPHOROUS 3.5 mg/dL (2.5-4.9); POTASSIUM 3.4 mmol/L (3.5-5.1); TOT PROT 6.2 g/dl (6.4-8.2)
[2019-03-26] MEDS ORDERED: MAGNESIUM SULF 50% (8.12 MEQ/2 ML-1 GM VIAL) IVPB ONE (06:36)
[2019-03-26] MEDS ORDERED: MAGNESIUM 1GM/D5W - 1 GM/100 ML IVPB IVPB ONE (06:49)
[2019-03-26] MEDS ORDERED: POTASSIUM CHLORIDE TABS 20 MEQ TABLET.ER (FP) PO ONE (09:22)
[2019-03-26] MEDS: THIAMINE HCL 100 MG TABLET (FP) PO SCH (10:00)
[2019-03-26] MEDS ORDERED: KETOROLAC TROMETHAMINE 30 MG/1 ML VIAL IM ONE (10:00)
[2019-03-26] MEDS: FOLIC ACID 1 MG TABLET (FP) PO SCH (10:00)
[2019-03-26] MEDS: MULTIVITAMINS (DAILY MVI) TABLET (FP) PO SCH (10:18)
[2019-03-26] MEDS ORDERED: KETOROLAC TROMETHAMINE 30 MG/1 ML VIAL ONE (10:36)
[2019-03-26 10:58] LABS: INR 0.92 (0.83-1.09); PROTHROMBIN TIME (PATIENT) 10.9 SEC (9.7-13.0)
[2019-03-26] MEDS: LORazepam 1 MG TABLET PO PRN ×2 (11:20→17:04)
--- NOTE | 2019-03-26 13:47 | ECHO ---
Name: CANDI RADHA Exam:Adult Echocardiogram Study Date: 03/26/2019 11:19 AM Age: 38 yrs Reason For Study: LV Function Height: 63 in Weight: 145 lb BSA: 1.7 m2 MMode/2D Measurements & Calculations IVSd: 1.0 cm Ao root diam: 2.9 cm LVIDd: 4.3 cm LA dimension: 2.6 cm LVIDs: 2.6 cm LVPWd: 0.86 cm EDV(Teich): 85.2 ml LVOT diam: 2.0 cm ESV(Teich): 24.2 ml LAV (MOD-bp): 26.6 ml Doppler Measurements & Calculations MV E max marquis: 80.0 cm/sec Ao V2 max: 135.7 cm/sec MV A max marquis: 96.5 cm/sec Ao max P.4 mmHg MV E/A: 0.83 MV dec time: 0.27 sec MONA(V,D): 2.0 cm2 LV V1 max P.2 mmHg TR max marquis: 175.8 cm/sec LV V1 max: 89.2 cm/sec TR max P.4 mmHg PA V2 max: 85.5 cm/sec Med Peak E' Marquis: 8.6 cm/sec PA max P.9 mmHg Med E/e': 9.3 Lat Peak E' Marquis: 7.7 cm/sec Lat E/e': 10.4 Left Ventricle The left ventricular size, thickness and function are normal. Ejection Fraction = 60-65%. Right Ventricle The right ventricle is normal in size and function. Atria Normal left and right atrial size and function. Mitral Valve The mitral valve is normal in structure and function. There is no mitral valve stenosis. There is mil d mitral regurgitation. Tricuspid Valve The tricuspid valve is normal in structure and function. There is mild tricuspid regurgitation. Right ventricular systolic pressure is normal. Aortic Valve The aortic valve is trileaflet. No hemodynamically significant valvular aortic stenosis. No aortic regurgitation is present. Pulmonic Valve The pulmonic valve is not well seen, but is grossly normal. There is no pulmonic valvular stenosis. Great Vessels The aortic root is normal size. Pericardium/Pleura There is no pericardial effusion. Interpretation Summary The left ventricular size, thickness and function are normal Ejection Fraction = 60-65%. The right ventricle is normal in size and function. There is mild mitral regurgitation. There is mild tricuspid regurgitation. Right ventricular systolic pressure is normal. There is no pericardial effusion. MD Galaviz *Braulio 03/26/2019 01:46 PM
[2019-03-26] MEDS ORDERED: HEPARIN NA (PORCINE) 5,000 UNITS/ML 1ML VIAL ONE (14:24)
[2019-03-26] MEDS: HEPARIN NA (PORCINE) 5,000 UNITS/ML 1ML VIAL SQ SCH ×2 (14:27→22:26)
--- NOTE | 2019-03-26 14:29 | EKG ---
Test Reason : Blood Pressure : / mmHG Vent. Rate : 069 BPM Atrial Rate : 069 BPM P-R Int : 134 ms QRS Dur : 082 ms QT Int : 428 ms P-R-T Axes : 014 037 030 degrees QTc Int : 458 ms NORMAL SINUS RHYTHM NONSPECIFIC T WAVE ABNORMALITY Confirmed by BANG HOOK MD ([id number]) on 03/26/2019 2:29:03 PM Referred By: Confirmed By:BANG HOOK MD
--- NOTE | 2019-03-26 15:26 | PN ---
Teaching Attending Note Name of Resident: Colleen Rudolph ATTENDING PHYSICIAN STATEMENT I saw and evaluated the patient. I reviewed the resident's note and discussed the case with the resident. I agree with the resident's findings and plan as documented. SUBJECTIVE: seen at 9:30 am Pain in L shoulder, wants pain meds and medication for the shakes. OBJECTIVE: NAD CV; RRR Lungs: CTAB Abd: soft, ND, NL BS, tender in most quadrants. not in RUQ. no rebound tenderness Ext : No edema or erythema. tenderness over L shoulder. No erytehma . bruising on posterior upper humerous. RP 2+. L shoulder abduction to 90 degrees. Neuro: EOMI, round equal pupils, reactive to light. no facial droop. strength 5/ 5 in upper and lower extremities. sensation to light touch nl. ASSESSMENT AND PLAN: 38 y/o lady with h/o ETOH abuse, and anemia, who presented to [facility] fro detox then transferred here due to L shoulder pain 1- ETOH withdrawal 2- Transaminitis: due to alcoholic hepatitis. DF -4.2 3- ? Syncope 4- falls. due to intoxication 5- L shoulder pain . possible rotator cuff injury 6- pancytopenia: likely due to alcohol use plan : - obtain xray of humerous - ortho consult - ativan protocol - toradol for pain . no narcotics - PPI - Echo, US of abd reviewed. - No suspicion for cholecystitis or CBD obstruction . - dispo : pending ortho eval. possible [facility]
[2019-03-26] MEDS ORDERED: LORazepam 1 MG TABLET PO SCH (18:17)
[2019-03-26] MEDS: LORazepam 1 MG TABLET PO SCH ×2 (18:45→22:27)
--- NOTE | 2019-03-26 18:49 | PN ---
Physical Exam: SUBJECTIVE: Patient seen and examined in the morning. Patient had no acute events overnight. Denies chest pain, shortness of breath, headache, fevers, and chills. OBJECTIVE: Vital Signs Period Temp Pulse Resp BP Sys/Hernandez Pulse Ox Last 24 Hr 97.4 F-98.3 F 65-80 16-20 113-128/76-97 98-99 GENERAL: The patient is awake, alert, and fully oriented, HEAD: Normal with no signs of trauma. EYES: PERRL, extraocular movements intact, sclera anicteric, conjunctiva clear. ENT: Ears normal, nares patent, oropharynx clear without exudates, moist mucous membranes. NECK: Trachea midline, full range of motion, supple. LUNGS: Breath sounds equal, clear to auscultation bilaterally, no wheezes, no crackles, no accessory muscle use. HEART: Regular rate and rhythm, S1, S2 without murmur, rub or gallop. ABDOMEN: Tender in 4 quadrants of abdomen, nondistended, normoactive bowel sounds, no guarding, no rebound, no hepatosplenomegaly, no masses. EXTREMITIES: 2+ pulses, warm, well-perfused, no edema. Left upper extremity only abducts to 90 degrees. NEUROLOGICAL: Cranial nerves II through XII grossly intact. Normal speech, gait not observed. Laboratory Results - last 24 hr 03/25/19 03/25/19 03/25/19 19:00 19:00 19:00 WBC 3.8 L RBC 3.77 Hgb 11.7 Hct 35.1 MCV 93.2 MCH 31.1 MCHC 33.3 RDW 21.2 H Plt Count 131 L D MPV 9.2 Absolute Neuts (auto) 2.7 Neutrophils % 69.7 Lymphocytes % 21.3 Monocytes % 7.6 Eosinophils % 0.6 Basophils % 0.8 Nucleated RBC % 0 Hypochromia 1+ Platelet Estimate Decreased Polychromasia 0 Poikilocytosis 1+ Anisocytosis 1+ Microcytosis 1+ Macrocytosis 0 Target Cells 1+ Stomatocytes 1+ Schistocytes 1+ PT with INR INR Sodium 138 Potassium 3.7 Chloride 102 Carbon Dioxide 27 Anion Gap 8 BUN 3.5 L Creatinine 0.5 L Est GFR (CKD-EPI)AfAm 141.30 Est GFR (CKD-EPI)NonAf 121.92 Random Glucose 83 Calcium 8.5 Phosphorus Magnesium Total Bilirubin 0.7 AST 269 H ALT 116 H Alkaline Phosphatase 118 H Creatine Kinase 127 Troponin I < 0.02 Total Protein 6.8 Albumin 3.4 Lipase 101 TSH 2.23 Serum , Qual Negative Alcohol, Quantitative < 3.0 03/26/19 03/26/19 03/26/19 05:36 05:36 10:30 WBC 3.1 L RBC 3.74 Hgb 11.3 Hct 34.8 MCV 93.1 MCH 30.3 MCHC 32.5 RDW 21.0 H Plt Count 114 L MPV 9.0 Absolute Neuts (auto) 1.7 Neutrophils % 55.0 D Lymphocytes % 32.5 D Monocytes % 10.2 Eosinophils % 2.1 D Basophils % 0.2 Nucleated RBC % 1 H Hypochromia Platelet Estimate Polychromasia Poikilocytosis Anisocytosis Microcytosis Macrocytosis Target Cells Stomatocytes Schistocytes PT with INR 10.90 INR 0.92 Sodium 139 Potassium 3.4 L Chloride 105 Carbon Dioxide 27 Anion Gap 8 BUN 3.2 L Creatinine 0.6 Est GFR (CKD-EPI)AfAm 133.07 Est GFR (CKD-EPI)NonAf 114.82 Random Glucose 81 Calcium 8.2 L Phosphorus 3.5 Magnesium 1.5 L Total Bilirubin 0.8 AST 241 H ALT 103 H Alkaline Phosphatase 109 Creatine Kinase Troponin I Total Protein 6.2 L Albumin 3.0 L Lipase TSH Serum , Qual Alcohol, Quantitative Active Medications Generic Name Dose Route Start Last Admin Trade Name Freq PRN Reason Stop Dose Admin Folic Acid 1 mg 03/26/19 10:00 03/26/19 10:00 Folic Acid - PO 1 mg DAILY LICHA Administration Heparin Sodium (Porcine) 5,000 unit 03/26/19 14:00 03/26/19 14:27 Heparin - SQ 5,000 unit TID LICHA Administration Lorazepam 0.5 mg 03/28/19 05:00 Ativan - PO 03/28/19 23:01 Q6H LICHA Lorazepam 0.5 mg 03/28/19 00:00 Ativan - PO 03/29/19 00:00 Q4H PRN Symptoms of Withdrawal Lorazepam 0.5 mg 03/29/19 05:00 Ativan - PO 03/29/19 05:01 ONCE ONE Lorazepam 1 mg 03/27/19 05:00 Ativan - PO 03/27/19 23:01 0500,1100,1700,2300 LICHA Lorazepam 1 mg 03/26/19 04:34 03/26/19 17:04 Ativan - PO 03/28/19 00:00 1 mg Q4H PRN Administration Symptoms of Withdrawal Lorazepam 2 mg 03/26/19 18:28 03/26/19 18:45 Ativan - PO 03/26/19 23:01 Not Given 0500,1100,1700,2300 LICHA Multivitamins/Minerals/Vitamin C 1 tab 03/26/19 10:00 03/26/19 10:18 Tab-A-Vit - PO 1 tab DAILY LICHA Administration Thiamine HCl 100 mg 03/26/19 10:00 03/26/19 10:00 Vitamin B1 - PO 100 mg DAILY LICHA Administration ASSESSMENT/PLAN: 31F with PMH of EtOH abuse sent from [facility] for evaluation of left shoulder pain. 1)Acute Alcohol withdrawal secondary to alcohol cessation. -Ativan protocol -Thiamine 100 mg PO Qdaily. -Folic 1 mg PO Qdaily -PT evaluation 2)Limited Abduction of left shoulder -X-ray negative for clavicular fracture, and AC joint is normal -Ortho consulted, appreciate recs -Consider MRI -Pending X-ray of left humerus 3)Syncopal event -Echo: EF of 60-65% -On telemetry monitoring. 4)Elevated LFTs -US showed showed mild hepatomegaly with fatty infiltration. -Likely Alcoholic Hepatitis 5)Pancytopenia -Likely due to alcohol use disorder DVT: Heparin 5000 units SQ TID Dispo: Admit to telemetry Visit type - Emergency Visit Emergency Visit: Yes ED Registration Date: 03/26/19 Care time: The patient presented to the Emergency Department on the above date and was hospitalized for further evaluation of their emergent condition. - New Patient This patient is new to me today: Yes Date on this admission: 03/26/19 - Critical Care Critical Care patient: No ATTENDING PHYSICIAN STATEMENT I saw and evaluated the patient. I reviewed the resident's note and discussed the case with the resident. I agree with the resident's findings and plan as documented. SUBJECTIVE: OBJECTIVE: ASSESSMENT AND PLAN:
[2019-03-26] MEDS ORDERED: KETOROLAC TROMETHAMINE 15 MG/ML VIAL IVPUSH ONE ×2 (19:36→23:28)
[2019-03-27] MEDS: LORazepam 1 MG TABLET PO PRN ×3 (01:12→13:19)
[2019-03-27] MEDS ORDERED: MELATONIN 5 MG TABLETS PO ONE (02:59)
[2019-03-27] MEDS: HEPARIN NA (PORCINE) 5,000 UNITS/ML 1ML VIAL SQ SCH ×2 (05:44→13:18)
[2019-03-27] MEDS: LORazepam 1 MG TABLET PO SCH ×2 (05:44→11:06)
[2019-03-27 07:45] LABS: BASO % 0.7 % (0-2.0); EOS % 1.9 % (0-4.5); HEMATOCRIT 34.1 % (32.4-45.2); HEMOGLOBIN 10.9 GM/dL (10.7-15.3); LYMPH % 28.2 % (8-40); MCH 30.1 pg (25.7-33.7); MEAN CELL VOLUME 94.1 fl (80-96); MEAN PLT VOLUME 9.8 fl (7.5-11.1); NEUT % 59.2 % (42.8-82.8); PLATELET COUNT 126 K/MM3 (134-434); RBC 3.62 M/mm3 (3.60-5.2); RDW 21.3 % (11.6-15.6)
[2019-03-27] MEDS ORDERED: IBUPROFEN 400 MG TABLET (FP) PO PRN (08:07)
[2019-03-27 08:09] LABS: BILIRUBIN,TOTAL 0.6 mg/dL (0.2-1); BLOOD UREA NITROGEN 3.4 mg/dL (7-18); CALCIUM 8.5 mg/dL (8.5-10.1); CREATININE 0.5 mg/dL (0.55-1.3); POTASSIUM 3.5 mmol/L (3.5-5.1); TOT PROT 6.1 g/dl (6.4-8.2)
[2019-03-27] MEDS: MULTIVITAMINS (DAILY MVI) TABLET (FP) PO SCH (09:38)
[2019-03-27] MEDS: THIAMINE HCL 100 MG TABLET (FP) PO SCH (09:38)
[2019-03-27] MEDS: FOLIC ACID 1 MG TABLET (FP) PO SCH (09:38)
[2019-03-27 09:41] VITALS: TEMP 98
[2019-03-27 11:08] VITALS: BP 110/78; PULSE 76
[2019-03-27] MEDS ORDERED: PNEUMOC 13-VAL CONJ-DIP CRM/PF 0.5 ML DISP.SYRIN IM ONE (11:51)
--- NOTE | 2019-03-27 11:56 | PN ---
Teaching Attending Note Name of Resident: Colleen Ronni ATTENDING PHYSICIAN STATEMENT I saw and evaluated the patient. I reviewed the resident's note and discussed the case with the resident. I agree with the resident's findings and plan as documented. SUBJECTIVE: No fever or chills. wants to go to [facility], she does not wamt to wait for ortho to see her. asks fro librium and ativan together and asks fro IV morphine . also asks fro benadryl. OBJECTIVE: NAD CV; RRR Lungs: CTAB Abd: soft, ND, NL BS,NT. Ext : No edema or erythema. tenderness over L shoulder. No erytehma . bruising on posterior upper humerous. RP 2+. L shoulder abduction to 100 degrees. ASSESSMENT AND PLAN: 38 y/o lady with h/o ETOH abuse, and anemia, who presented to [facility] fro detox then transferred here due to L shoulder pain 1- ETOH withdrawal 2- Transaminitis: due to alcoholic hepatitis. DF -4.2 3- ? Syncope 4- falls. due to intoxication 5- L shoulder pain. possible rotator cuff injury 6- pancytopenia: likely due to alcohol use plan : - No fx on humerous xray. - f/u with ortho as outpt for possible MRI. she does nto want to wait for ortho here. no urgency - ativan protocol to continue at [facility] ( day 2 today ) - can take ibuprofena dn lidocaine patch for shoulder pain ) - PPI - cont abdoul emeds - tele reviewed. , no events - f/u with heme for cytopenia
[2019-03-27] MEDS ORDERED: PNEUMOCOCCAL 23 VACCINE 0.5 ML VIAL IM ONE (12:15)
--- NOTE | 2019-03-27 12:33 | DS ---
Physical Exam: SUBJECTIVE: Patient seen this morning and complains of nausea, sweating and loose stool. No acute events overnight. OBJECTIVE: Vital Signs Period Temp Pulse Resp BP Sys/Hernandez Pulse Ox Last 24 Hr 97.4 F-98.6 F 65-98 18-20 100-120/65-81 96-98 PHYSICAL EXAM GENERAL: The patient is awake, alert, and fully oriented, in no acute distress. ENT: moist mucous membranes. LUNGS: Breath sounds equal, clear to auscultation bilaterally, no wheezes, no crackles, no accessory muscle use. HEART: Regular rate and rhythm, S1, S2 without murmur, rub or gallop. ABDOMEN: Soft, nontender, nondistended, normoactive bowel sounds, no guarding, no rebound, no hepatosplenomegaly, no masses. SKIN: Warm, dry, normal turgor, no rashes or lesions noted. LABS CBC, BMP 03/27/19 05:53 03/27/19 05:53 HOSPITAL COURSE: Date of Admission:03/26/19 Patient is a 31 y/o female who presented from [facility] for shoulder pain. Xrays did not show fractures. Troponins negative x 2 ECHO WNL. Patient started on ativan detox. Patient transferred to [facility] to complete ativan detox. Referred patient to ortho to f/u for pain as an outpatient Echo: EF 60-65% ABD US: mild hepatomegaly with fatty infiltration Date of Discharge: 03/27/19 Minutes to complete discharge: 5 Discharge Summary Problems reviewed: Yes Reason For Visit: SHOULDER PAIN, ALCOHOL DEPENDENCE WITH WITHDRAWAL Current Active Problems Alcohol dependence with uncomplicated intoxication (Acute) ETOH abuse (Acute) Shoulder pain (Acute) Syncope (Acute) Transaminitis (Acute) Condition: Stable - Instructions Diet, Activity, Other Instructions: You were admitted to the hospital for shoulder pain. While you were here we monitored your heart. To continue management of your shoulder pain please follow up with our orthopedist as an outpatient for any further imaging. While you were here we also began medication to help you detox from alcohol. You will complete this detox at [facility]. Continue your home medications as prescribed. Follow up with your primary care physician within one week. follow up with rotary envelope machine operator , dr. Leblanc for low blood counts Return to the Emergency Department if you have nausea, vomiting, headache, chest pain, or shortness of breath. Referrals: [facility] [place] [Provider Group] Hector Ortiz MD [Staff Physician] - Deana Mckay MD [Staff Physician] - 3 Weeks Disposition: TRANSFER ACUTE CARE/OTHER HOSP - Home Medications Comprehensive Discharge Medication List: Ambulatory Orders Folic Acid - 1 mg PO DAILY 02/11/18 Multivitamins [Multivit ([facility] Formulary)] 1 tab PO DAILY 02/11/18 Citalopram Hydrobromide [Celexa -] 10 mg PO DAILY 03/25/19 Cyanocobalamin (Vitamin B-12) [B-12] 1,000 mcg PO DAILY 03/25/19 Famotidine [Pepcid] 40 mg PO DAILY 03/25/19 Cholecalciferol (Vitamin D3) [Vitamin D3] 50,000 unit PO WEEKLY 03/26/19 Gabapentin 300 mg PO TID 03/26/19 Ibuprofen [Ibu] 400 mg PO Q6H #10 tablet 03/27/19 LORazepam [Ativan] 0.5 mg PO Q4H PRN tablet [facility] 4 03/27/19 LORazepam [Ativan] 0.5 mg PO Q6H tablet [facility] 4 03/27/19 LORazepam [Ativan] 1 mg PO 0500,1100,1700,2300 tablet [facility] 4 03/27/19 LORazepam [Ativan] 1 mg PO Q4H PRN tablet [facility] 4 03/27/19 LORazepam [Ativan] 2 mg PO 0500,1100,1700,2300 tablet [facility] 4 03/27/19 LORazepam [Ativan] 2 mg PO 0500,1100,1700,2300 tablet [facility] 4 03/27/19 Lidocaine 5% Patch [Lidoderm -] 1 patch TP DAILY #5 patch 03/27/19 Thiamine HCl [Vitamin B1 -] 100 mg PO DAILY tablet 03/27/19 This patient is new to me today: Yes Date on this admission: 03/27/19 Emergency Visit: Yes ED Registration Date: 03/26/19 Care time: The patient presented to the Emergency Department on the above date and was hospitalized for further evaluation of their emergent condition. Critical Care patient: No - Discharge Referral Referred to [facility] Med [facility].C.: No ATTENDING PHYSICIAN STATEMENT I saw and evaluated the patient. I reviewed the resident's note and discussed the case with the resident. I agree with the resident's findings and plan as documented. SUBJECTIVE: OBJECTIVE: ASSESSMENT AND PLAN:
[2019-03-27 19:07] LABS: HEP B CORE AB, TOT Negative (Negative)
[2019-03-28] MEDS ORDERED: LORazepam 0.5 MG TABLET PO PRN
[2019-03-28] MEDS ORDERED: LORazepam 0.5 MG TABLET PO SCH (05:00)
[2019-03-29] MEDS ORDERED: LORazepam 0.5 MG TABLET PO ONE (05:00)
== END 2019-03-27 13:45 | disposition short-term general hospital (02) | DRG 351 ==
LOC: JER 16:21 → JERBED 03-26 00:42 → OBSVTOIN 03-26 04:18 → J4W 03-26 15:36
PROVIDERS: ADMIT Internal Medicine; ATTEND Internal Medicine
DX: M25.512 Pain in left shoulder (principal); R51 Headache; R25.1 Tremor, unspecified; S80.01XA Contusion of right knee, initial encounter; S60.212A Contusion of left wrist, initial encounter; S50.02XA Contusion of left elbow, initial encounter; W18.39XA Other fall on same level, initial encounter; R55 Syncope and collapse; K70.30 Alcoholic cirrhosis of liver without ascites; F10.239 Alcohol dependence with withdrawal, unspecified; K76.0 Fatty (change of) liver, not elsewhere classified; D61.818 Other pancytopenia; Y92.89 Other specified places as the place of occurrence of the external cause; F41.9 Anxiety disorder, unspecified; R00.0 Tachycardia, unspecified; R94.5 Abnormal results of liver function studies; Z98.84 Bariatric surgery status
CPT/HCPCS: 36415; 70450-TC; 71046-TC-FY; 72125-TC; 73030-TC-LT-FY; 73060-TC-LT-FY; 76705-TC; 80053; 80074; 80307; 82550; 83690; 83735; 84100; 84443; 84484; 84703; 85025; 85610; 86704; 86705; 86706; 86707; 86708; 86709; 87340; 87350; 87522; 93005; 93010; 93306-TC; 99285-25; G0378; J0131; J1644; J7030

== ENCOUNTER 2019-03-27 15:02 | Inpatient (IN) | payer OTHER ==
[2019-03-27 15:58] VITALS: BMI 28.8
--- NOTE | 2019-03-27 16:13 | HP ---
CIWA Score Nausea/Vomitin-Mild Nausea/No Vomiting Muscle Tremors: 4-Moderate,w/Arms Extend Anxiety: 4-Mod. Anxious/Guarded Agitation: 4-Moderately Restless Paroxysmal Sweats: 3 (Increased facial mositure.) Orientation: 0-Oriented Tacttile Disturbances: 0-None Auditory Disturbances: 0-None Visual Disturbances: 0-None Headache: 2-Mild CIWA-Ar Total Score: 18 - Admission Criteria OASAS Guidelines: Admission for Medically Managed Detox: Requires at least one of the followin. CIWA greater than 12 2. Seizures within the past 24 hours 3. Delirium tremens within the past 24 hours 4. Hallucinations within the past 24 hours 5. Acute intervention needed for co occurring medical disorder 6. Acute intervention needed for co occurring psychiatric disorder 7. Severe withdrawal that cannot be handled at a lower level of care (continued vomiting, continued diarrhea, abnormal vital signs) requiring intravenous medication and/or fluids 8. Patient presents the following: CIWA greater than 12 Admission Criteria Met: Admission criteria met Admitting History and Physical - Past Medical History VAULT MANAGER: Yes: Migraine Cardiovascular: Yes: HTN ...LMP: 01/24/19 Psych: Yes: Anxiety, Panic - Past Surgical History Past Surgical History: Yes: Bariatric Surgery, (x3) - Smoking History Smoking history: Current every day smoker Have you smoked in the past 12 months: Yes Aproximately how many cigarettes per day: 13 - Alcohol/Substance Use Hx Alcohol Use: Yes History of Substance Use: reports: Prescription (tramadol) Admission ROS [facility] - [facility] Chief Complaint: Here for continuation of alcohol detox Allergies/Adverse Reactions: Allergies Allergy/AdvReac Type Severity Reaction Status Date / Time No Known Allergies Allergy Verified 03/27/19 15:37 History of Present Illness: 38 yo w/ hx alcohol use disorder, returns from [facility]. Patient was seen in [facility] and PE was completed on 03/25. Patient was then sent to [facility] ED for evaluation of shoulder pain after fall prior to presentation to [facility]. Patient was admitted to [facility] and discharged today. Clinical course and labs from [facility] reviewed. Patient was placed on a Ativan detox while in [facility]. Elevated LFT's. PE from [facility] and [facility] reviewed and no significant changes. - Physical General Appearance: Yes: Tremorous, Anxious HEENTM: Yes: Normocephalic, GERALDO, Respiratory: Yes: Lungs Clear, Normal Breath Sounds, No Respiratory Distress, Neck: Yes: Within Normal Limits Cardiology: Yes: Regular Rhythm, Regular Rate, S1, S2 Abdominal: Yes: Normal Bowel Sounds, Non Tender, Soft Back: Yes: Within Normal Limits Musculoskeletal: Yes: Back pain, (L) shoulder pain ) Extremities: Yes: Non-Tender, Tremors, Other (decreased ROM LUE) Neurological: Yes: Fully Oriented, Alert, Integumentary: Yes: (Increased facial moisture) Lymphatic: Yes: Within Normal Limits Patient Name: Poonam Burgos Date: 1980 Address: [address] [place] [address] [id number] [place] [address] Sex: Female Rx Written Rx Dispensed Drug Quantity Days Supply Prescriber Name 12/16/2018 12/16/2018 tramadol hcl 50 mg tablet 6 3 Gillian Morse ( Exam Limitations: No Limitations - Ebola screening Have you traveled outside of the country in the last 21 days: No (N) Have you had contact with anyone from an Ebola affected area: No Do you have a fever: No Patient History - Patient Medical History Hx Anemia: No Hx Asthma: No Hx Chronic Obstructive Pulmonary Disease (COPD): No Hx Cancer: No Hx Cardiac Disorders: No Hx Congestive Heart Failure: No Hx Hypertension: Yes Hx Hypercholesterolemia: No Hx Pacemaker: No HX Cerebrovascular Accident: No Hx Seizures: No Hx Dementia: No Hx Diabetes: No Hx Gastrointestinal Disorders: No Hx Liver Disease: No Hx Genitourinary Disorders: No Hx Sexually Transmitted Disorders: No Hx Renal Disease (ESRD): No Hx Thyroid Disease: No Hx Human Immunodeficiency Virus (HIV): No (Negative 09/04/17 ) Hx Hepatitis C: No Hx Depression: Yes Hx Suicide Attempt: No Hx Bipolar Disorder: No Hx Schizophrenia: No - Patient Surgical History Past Surgical History: Yes Hx Neurologic Surgery: No Hx Cataract Extraction: No Hx Cardiac Surgery: No Hx Lung Surgery: No Hx Breast Surgery: Yes (reduction) Hx Breast Biopsy: No Hx Abdominal Surgery: Yes (s/p lap gasric by pass in 10/29/12) Hx Appendectomy: No Hx Cholecystectomy: No Hx Genitourinary Surgery: No Hx Section: Yes (x3) Hx Orthopedic Surgery: No Hx Hysterectomy: No Other Surgical History: bariatric, arm lift Anesthesia Reaction: No - PPD History Date: 09/13/17 Results: 0 mm - Reproductive History Last Menstrual Period: 01/24/19 - Smoking Cessation Smoking history: Current every day smoker Have you smoked in the past 12 months: Yes Aproximately how many cigarettes per day: 13 Hx Chewing Tobacco Use: No Initiated information on smoking cessation: Yes 'Breaking Loose' booklet given: 03/27/19 - Substance & Tx. History Hx Alcohol Use: Yes Hx Substance Use: Yes Substance Use Type: Alcohol Hx Substance Use Treatment: Yes (detox years ago) - Substances abused Alcohol Substance route: Oral Frequency: Daily Amount used: 2 bottles of wine or 2 large bottle of vodka or anson Age of first use: 36 Date of last use: 03/24/19 Admission Physical Exam [facility] - Vital Signs Vital Signs: Vital Signs - 24 hr 03/27/19 15:30 Temperature 97.4 F L Pulse Rate 85 Respiratory 16 Rate Blood Pressure 99/74 - Physical General Appearance: Yes: Nourished, Mild Distress, Tremorous, Irritable, Sweating, Anxious - Diagnostic (1) Shoulder pain Current Visit: Yes Status: Acute Qualifiers: Chronicity: acute Laterality: left Qualified Code(s): M25.512 - Pain in left shoulder (2) Alcohol dependence with uncomplicated withdrawal Current Visit: Yes Status: Acute (3) HTN (hypertension) Current Visit: Yes Status: Chronic Qualifiers: Hypertension type: essential hypertension Qualified Code(s): I10 - Essential (primary) hypertension (4) Nicotine dependence Current Visit: Yes Status: Chronic Qualifiers: Nicotine product type: cigarettes Substance use status: in withdrawal Qualified Code(s): F17.213 - Nicotine dependence, cigarettes, with withdrawal (5) Status post bariatric surgery Current Visit: Yes Status: Chronic (6) Back pain Current Visit: Yes Status: Chronic Qualifiers: Back pain location: low back pain Back pain laterality: bilateral Cleared for Admission [facility] - Detox or Rehab [facility] Level of Care: Medically Managed Detox Regimen/Protocol: Valium (ATIVAN DETOX) Claeared for Rehab Admission: No Breathalyzer - Breathalyzer Breathalyzer: 0 Urine Drug Screen - Test Device Lot number: [id number] Expiration date: 11/22/20 - Control Is test valid?: Yes - Results Drug screen NEGATIVE: No Urine drug screen results: MOP-Opiates, BZO-Benzodiazepines Inpatient Rehab Admission - Rehab Decision to Admit Inpatient rehab admission?: No
[2019-03-27] MEDS ORDERED: MENTHOL/PHENOL 1 EACH UD MM PRN (16:29)
[2019-03-27] MEDS ORDERED: NICOTINE POLACRILEX 2 MG GUM BUC PRN (16:29)
[2019-03-27] MEDS ORDERED: MAG HYDROX/AL HYDROX/SIMETH 30 ML UNIT-DOSE CUP PO PRN (16:29)
[2019-03-27] MEDS ORDERED: LORazepam 1 MG TABLET PO PRN (16:29)
[2019-03-27] MEDS ORDERED: MAGNESIUM CITRATE 300 ML BOTTLE PO PRN (16:29)
[2019-03-27] MEDS ORDERED: BISMUTH SUBSALICYLATE 524 MG/30 ML UD PO PRN (16:29)
[2019-03-27] MEDS ORDERED: ACETAMINOPHEN 325 MG TABLET (FP) PO PRN ×2 (16:29)
[2019-03-27] MEDS ORDERED: MAGNESIUM HYDROX 2400MG/30ML ORAL SUSPENSION 30 ML CUP PO PRN (16:29)
[2019-03-27] MEDS: LORazepam 2 MG TABLET PO SCH ×2 (17:53→22:34)
[2019-03-27] MEDS: IBUPROFEN 400 MG TABLET (FP) PO PRN (17:55)
[2019-03-27] MEDS: THIAMINE HCL 100 MG TABLET (FP) PO SCH (22:34)
[2019-03-27] MEDS: GABAPENTIN 300 MG CAPSULE (FP) PO SCH (22:34)
[2019-03-27] MEDS ORDERED: traZODone HCL 50 MG TABLET (FP) PO ONE (23:00)
[2019-03-28] MEDS: METHOCARBAMOL 500 MG TABLET PO PRN ×2 (04:02→22:17)
[2019-03-28] MEDS: LORazepam 1 MG TABLET PO SCH ×4 (05:16→22:17)
[2019-03-28] MEDS: LORazepam 2 MG TABLET PO SCH (06:04)
[2019-03-28] MEDS: GABAPENTIN 300 MG CAPSULE (FP) PO SCH ×3 (06:09→22:17)
[2019-03-28] MEDS: PANTOPRAZOLE 40 MG TABLET (FP) PO SCH (10:05)
[2019-03-28] MEDS: NICOTINE 14 MG/24 HOURS TOPICAL PATCH TD SCH (10:05)
[2019-03-28] MEDS: PRENATAL VITAMINS W/ FOLIC ACID TABLET (FP) PO SCH (10:05)
[2019-03-28] MEDS: LIDOCAINE 5% TOPICAL PATCH TP SCH (10:10)
[2019-03-28] MEDS: IBUPROFEN 400 MG TABLET (FP) PO PRN (12:18)
--- NOTE | 2019-03-28 14:21 | CONSULT ---
[facility] Psychiatric Consult - Data Date of interview: 03/28/19 Admission source: Self-referred Identifying data: Ms Burgos is a 38 years old single female, mother of 2 daughter, employed as counselor for [employer], domiciled seeking detox treatment for alcohol Substance Abuse History: Reports history of alcohol use. Refer to addiction counselor's summary for further information Medical History: Significant for migraine headache, hypertensin, arthritis of hands, lower back and knees and history of multiple surgeries(bariactric, c- section, breast reduction, arm lift). Smokes 13 cigarettes daily Psychiatric History: Patient reports that her first psychiatric contact was in 2015 when she was diagnosed with MDD and Panic Attack by a psychiatrist at [facility] and prescribed Zoloft and some other medication. Told expert medical writer she took these medications for several months before she stopped them because they were not working. Recently in December 2018, she was admitted for depression to [facility] for 5 days and prescribed Celexa and another medication for insomnia. Claims after this discharge, she called to schedule an appointment at [facility] and was told that she can only be seen in April and was instructed to get refills through her primary care physician while waiting for that appointment. So she has been getting refills for only Celexa. Denies previous suicidal attempt. At present, denies experiencing depressive symptoms, S/H ideations. However, reports feeling anxious and sleeping poorly Physical/Sexual Abuse/Trauma History: Denies history of emotional, physical or sexual abuse as well as DV relationship Mental Status Exam - Mental Status Exam Alert and Oriented to: Time, Place, Person Patient Appearance: Well Groomed Mood: Anxious Affect: Appropriate Patient Behavior: Cooperative Speech Pattern: Clear Voice Loudness: Normal Thought Process: Intact, Goal Oriented Thought Disorder: Not Present Hallucinations: Denies Suicidal Ideation: Denies Homicidal Ideation: Denies Insight/Judgement: Poor Sleep: Poorly Appetite: Poor Muscle strength/Tone: Normal Gait/Station: Normal Psychiatric Findings - Problem List ([place] 1, 2,3) (1) Depressive disorder Current Visit: Yes Status: Chronic (2) MDD (major depressive disorder), recurrent episode Current Visit: Yes Status: Ruled-out (3) Anxiety disorder Current Visit: Yes Status: Chronic (4) Panic disorder Current Visit: Yes Status: Acute (5) Alcohol-induced anxiety disorder Current Visit: Yes Status: Acute (6) Alcohol-induced sleep disorder Current Visit: Yes Status: Acute (7) Alcohol dependence with uncomplicated withdrawal Current Visit: Yes Status: Acute (8) Nicotine dependence Current Visit: Yes Status: Chronic Qualifiers: Nicotine product type: cigarettes Substance use status: in withdrawal Qualified Code(s): F17.213 - Nicotine dependence, cigarettes, with withdrawal (9) Shoulder pain Current Visit: Yes Status: Acute Qualifiers: Chronicity: acute Laterality: left Qualified Code(s): M25.512 - Pain in left shoulder (10) Back pain Current Visit: Yes Status: Chronic Qualifiers: Back pain location: low back pain Back pain laterality: bilateral (11) Status post bariatric surgery Current Visit: Yes Status: Resolved - Initial Treatment Plan Initial Treatment Plan: 1) Continue Celexa 10 mg po daily. 2) Start Belsomra 10 mg po HS prn for insomnia and Vistaril 50 mg po Q4hrs prn for anxiety. 3) Continue inpatient detoxification
[2019-03-28] MEDS ORDERED: CITALOPRAM HYDROBROMIDE 10 MG TABLET (FP) PO SCH (14:45)
[2019-03-28] MEDS: hydrOXYzine PAMOATE 50 MG CAPSULE (FP) PO PRN ×2 (14:46→18:45)
[2019-03-28] MEDS: CITALOPRAM HYDROBROMIDE 10 MG TABLET (FP) PO SCH (15:18)
--- NOTE | 2019-03-28 16:55 | PN ---
S CIWA - CIWA Score Nausea/Vomitin-Mild Nausea/No Vomiting Muscle Tremors: 4-Moderate,w/Arms Extend Anxiety: 4-Mod. Anxious/Guarded Agitation: 4-Moderately Restless Paroxysmal Sweats: 3 Orientation: 0-Oriented Tacttile Disturbances: 0-None Auditory Disturbances: 0-None Visual Disturbances: 0-None Headache: 0-None Present CIWA-Ar Total Score: 16 [facility] Progress Note (SOAP) Subjective: Anxious, interrupted sleep, sweating, tremor, left shoulder pain from left clavicle fx as per patient (given splint in ER to wear but non compliant stating she will start wearing it), tearful stating she hasn't slept for days Objective: 03/28/19 16:51 Last Vital Signs Temp Pulse Resp BP Pulse Ox 98.2 F 87 16 102/77 03/28/19 14:06 03/28/19 14:06 03/28/19 14:06 03/28/19 14:06 Laboratory Tests 03/28/19 05:40 RPR Titer Nonreactive Labs reviewed: hypomagnesium 1.5, elevated LFTs (AST/ALT) Assessment: 03/28/19 16:54 Withdrawal sxs Noted with hypomagnesium and elevated LFTs Plan: Continue detox Encouraged PO water intake Seen by Psychiatrist Hypomagnesium: not sure if treated in ER (patient stated she was seen in ER), repeat mg level in AM and replenish if warranted Elevated LFTs: repeat AST/ALT level in AM
[2019-03-28] MEDS ORDERED: SUVOREXANT 10 MG TABLET PO PRN (22:00)
[2019-03-28] MEDS: THIAMINE HCL 100 MG TABLET (FP) PO SCH (22:17)
[2019-03-29] MEDS ORDERED: LORazepam 0.5 MG TABLET PO PRN
[2019-03-29] MEDS: LORazepam 0.5 MG TABLET PO SCH ×2 (05:33→10:55)
[2019-03-29] MEDS: hydrOXYzine PAMOATE 50 MG CAPSULE (FP) PO PRN ×2 (05:36→10:57)
[2019-03-29] MEDS: GABAPENTIN 300 MG CAPSULE (FP) PO SCH ×2 (05:36→13:07)
[2019-03-29 10:03] LABS: MAGNESIUM 1.6 mg/dL (1.8-2.4)
[2019-03-29] MEDS: NICOTINE 14 MG/24 HOURS TOPICAL PATCH TD SCH (10:55)
[2019-03-29] MEDS: PRENATAL VITAMINS W/ FOLIC ACID TABLET (FP) PO SCH (10:55)
[2019-03-29] MEDS: PANTOPRAZOLE 40 MG TABLET (FP) PO SCH (10:55)
[2019-03-29] MEDS: LIDOCAINE 5% TOPICAL PATCH TP SCH (10:56)
[2019-03-29] MEDS: IBUPROFEN 400 MG TABLET (FP) PO PRN (10:59)
--- NOTE | 2019-03-29 12:02 | PN ---
S CIWA - CIWA Score Nausea/Vomitin-No Nausea/No Vomiting Muscle Tremors: 3 Anxiety: 2 Agitation: 3 Paroxysmal Sweats: 2 Orientation: 0-Oriented Tacttile Disturbances: 0-None Auditory Disturbances: 0-None Visual Disturbances: 0-None Headache: 0-None Present CIWA-Ar Total Score: 10 [facility] Progress Note (SOAP) Subjective: sleepy tired sweats interrupted sleep Objective: 03/29/19 12:02 Vital Signs Temperature 97.9 F 03/29/19 09:29 Pulse Rate 91 H 03/29/19 09:29 Respiratory Rate 18 03/29/19 09:29 Blood Pressure 92/54 L 03/29/19 09:29 O2 Sat by Pulse Oximetry (%) Laboratory Tests 03/28/19 03/29/19 05:40 08:00 Magnesium 1.6 L AST 97 H ALT 67 H RPR Titer Nonreactive aaox3 ambulating no acute distress Assessment: 03/29/19 12:05 withdrawals Plan: continue detox increase fluids
[2019-03-29] MEDS: CITALOPRAM HYDROBROMIDE 10 MG TABLET (FP) PO SCH (12:47)
[2019-03-29] MEDS: METHOCARBAMOL 500 MG TABLET PO PRN (13:06)
--- NOTE | 2019-03-29 16:44 | PN ---
[facility] Progress Note Note: Patient was admitted to [facility] on 03/25/19 and detox began. Patient then transferred to [facility] for continuation of detox. Patient requesting to be discharged today instead of tomorrow. Patient anxious but denies other withdrawal symptoms.
[2019-03-29 17:11] VITALS: BP 111/78; PULSE 103; TEMP 97.7
--- NOTE | 2019-03-30 00:12 | DS ---
[facility] Detox Discharge Summary Admission Date: 03/27/19 Discharge Date: 03/30/19 - History Present History: Alcohol Dependence Additional Comments: Admitted to detox for alcohol withdrawal symptoms. - Physical Exam Results Vital Signs: Vital Signs Temperature 97.7 F 03/29/19 17:10 Pulse Rate 103 H 03/29/19 17:10 Respiratory Rate 18 03/29/19 17:10 Blood Pressure 111/78 03/29/19 17:10 O2 Sat by Pulse Oximetry (%) Pertinent Admission Physical Exam Findings: Patient was then sent to [facility] ED for evaluation of shoulder pain on 03/05. Patient was admitted to [facility] and discharged today on 03/27 for transfer to [facility]. Clinical course and labs from [facility] reviewed. Patient was placed on a Ativan detox while in [facility] and will continue ativan detox. - Treatment Hospital Course: Detox Protocol Followed, Detoxed Safely, Responded well, Discharged Condition Good - Medication Discharge Medications: Ambulatory Orders Folic Acid - 1 mg PO DAILY 02/11/18 Multivitamins [Multivit ([facility] Formulary)] 1 tab PO DAILY 02/11/18 Citalopram Hydrobromide [Celexa -] 10 mg PO DAILY 03/25/19 Cyanocobalamin (Vitamin B-12) [B-12] 1,000 mcg PO DAILY 03/25/19 Famotidine [Pepcid] 40 mg PO DAILY 03/25/19 Cholecalciferol (Vitamin D3) [Vitamin D3] 50,000 unit PO WEEKLY 03/26/19 Gabapentin 300 mg PO TID 03/26/19 Calcium Citrate 400 mg PO DAILY 03/27/19 Diphenhydramine [Benadryl -] 50 mg PO HS 03/27/19 Ibuprofen [Ibu] 400 mg PO Q6H #10 tablet 03/27/19 Lidocaine 5% Patch [Lidoderm -] 1 patch TP DAILY #5 patch 03/27/19 Thiamine HCl [Vitamin B1 -] 100 mg PO DAILY tablet 03/27/19 - Diagnosis (1) Shoulder pain Status: Acute Qualifiers: Chronicity: acute Laterality: left Qualified Code(s): M25.512 - Pain in left shoulder (2) Alcohol dependence with uncomplicated withdrawal Status: Acute (3) HTN (hypertension) Status: Chronic Qualifiers: Hypertension type: essential hypertension Qualified Code(s): I10 - Essential (primary) hypertension (4) Nicotine dependence Status: Chronic Qualifiers: Nicotine product type: cigarettes Substance use status: in withdrawal Qualified Code(s): F17.213 - Nicotine dependence, cigarettes, with withdrawal (5) Back pain Status: Chronic Qualifiers: Back pain location: low back pain Back pain laterality: bilateral - AMA Did Patient Leave Against Medical Advice: No
[2019-03-30] MEDS ORDERED: LORazepam 0.5 MG TABLET PO ONE (05:00)
== END 2019-03-29 17:14 | disposition home or self-care (01) | DRG 775 ==
LOC: YASAS 15:02 → Y6N 16:53
PROVIDERS: ADMIT Allergy & Immunology; ATTEND Allergy & Immunology
PROC: HZ2ZZZZ Detoxification Services for Substance Abuse Treatment (ICD-10-PCS; principal; 2019-03-27)
DX: F10.230 Alcohol dependence with withdrawal, uncomplicated (principal); F10.280 Alcohol dependence with alcohol-induced anxiety disorder; F10.282 Alcohol dependence with alcohol-induced sleep disorder; F17.213 Nicotine dependence, cigarettes, with withdrawal; F32.9 Major depressive disorder, single episode, unspecified; F41.0 Panic disorder [episodic paroxysmal anxiety]; I10 Essential (primary) hypertension; M54.5 Low back pain; G89.29 Other chronic pain; M25.512 Pain in left shoulder; R94.5 Abnormal results of liver function studies; E83.42 Hypomagnesemia; M19.90 Unspecified osteoarthritis, unspecified site; Z98.84 Bariatric surgery status
CPT/HCPCS: 36415; 83735; 84450; 84460; 86593